=== PATIENT | male | born 1940 | race Caucasian/White ===

== ENCOUNTER 2018-07-30 09:56 | Observation (INO) ==
--- NOTE | 2018-07-30 11:11 | ED ---
HPI General Chief complaint: Respiratory Symptoms Stated complaint: SOB Time Seen by Provider: 07/30/18 10:51 History of Present Illness HPI narrative: 78-year-old male with history of prostate cancer currently undergoing chemotherapy and followed by oncologist Dr. Enciso, here for evaluation of cough, shortness of breath, nasal congestion, generalized weakness. Symptoms have been going on for about a week. He finished a course of Levaquin and prednisone prescribed to him by his primary care physician 3 days ago. He states that yesterday he had diarrhea with multiple loose/foul- smelling bowel movements throughout the day. He denies fevers or chills. No chest pain. Dyspnea is at rest, worse with exertion. No abdominal pain. Cough is productive of yellowish sputum, however when he blows his nose he does notice some streaks of blood. Related Data Home Medications Medication Instructions Recorded Confirmed aspirin [Ecotrin] 325 mg PO DAILY 07/13/18 07/30/18 atorvastatin [Lipitor] 80 mg PO DAILY 07/13/18 07/30/18 montelukast [Singulair] 10 mg PO QPM 07/13/18 07/30/18 Allergies Allergy/AdvReac Type Severity Reaction Status Date / Time No Known Allergies Allergy Verified 07/30/18 10:13 Review of Systems ROS: all other systems reviewed are negative [facility] Medical History Medical History Bony metastasis (Acute) COPD (chronic obstructive pulmonary disease) (Acute) High cholesterol (Acute) Prostate cancer (Acute) Surgical History Surgical History History of CEA (carotid endarterectomy) (Acute) History of penile implant (Acute) History of prostate surgery (Acute) Family History Family History Other CAD (coronary artery disease) Social History Social History Substance History: No History of Abuse Second Hand Smoke Exposure: No Smoking Status: Former smoker How Often Do You Have a Drink Containing Alcohol: 2 to 4 times a month Recent Travel in [facility] within the Last 8 Weeks: No Recent Out of Country Travel within the Last 8 Weeks: No Immunization History Tetanus Immunization: Unsure Exam Narrative Exam Narrative: GENERAL: Well-developed, well-nourished, comfortable, no apparent distress. SKIN: Focused skin assessment warm/dry. Diffuse pallor. HEAD: Atraumatic. Normocephalic. EYES: Pupils equal and round. No scleral icterus. No injection or drainage. Conjunctival pallor. ENT: No nasal bleeding or discharge. Mucous membranes pink and moist. Patchy white areas on tongue and posterior pharynx consistent with Kelsea. NECK: Trachea midline. No JVD. CARDIOVASCULAR: Regular rate and rhythm. RESPIRATORY: No accessory muscle use. Clear to auscultation. Breath sounds equal bilaterally. GASTROINTESTINAL: Abdomen soft, non-tender, nondistended. MUSCULOSKELETAL: No obvious deformities. No clubbing. No cyanosis. No edema. NEUROLOGICAL: Awake and alert. No obvious cranial nerve deficits. Motor grossly within normal limits. Normal speech. PSYCHIATRIC: Appropriate mood and affect; insight and judgment normal. Course Initial Documented Vital Signs Temperature 97.3 F L 07/30/18 10:00 Pulse Rate 84 07/30/18 10:00 Respiratory Rate 19 07/30/18 10:00 Blood Pressure 135/59 L 07/30/18 10:00 Pulse Oximetry 93 L 07/30/18 10:00 Last Documented Vital Signs Temperature 97.3 F L 07/30/18 10:00 Pulse Rate 97 H 07/30/18 14:47 Respiratory Rate 20 07/30/18 14:47 Blood Pressure 139/63 07/30/18 14:47 Pulse Oximetry 95 07/30/18 15:05 Medical Decision Making MDM Narrative Medical decision making narrative: BNP is 150. ,Vital signs reviewed. CBC is remarkable for WBC 2.6, hemoglobin 8.8 which is lower than his baseline, 10.5% monocytes. CMP is remarkable for potassium 3.2, calcium 7.5. Both of these were replaced. CHEST X-RAY: Mild venous congestion. CT pulmonary angiogram: CONCLUSION:1. No pulmonary emboli.2. Progression in the patient's emphysematous changes as well as chronic interstitial change when compared to the prior study.3. Pronounced coronary artery atherosclerotic calcifications.4. New lymph node involving the right cardiophrenic angle without bulky adenopathy elsewhere. Short-term follow-up CT is suggested to document stability of this nodule. This can be performed without IV contrast.5. Cholelithiasis.6. Sclerotic metastases presumably relating to a prostate primary. There is a pathologic fracture involving the right eighth rib CT soft tissue neck: CONCLUSION:1. Sclerotic lesion involving the left first rib. Please see the CTA of the chest reported separately.2. No mass or adenopathy involving the neck.3. Carotid artery atherosclerotic calcifications. Patient stool is heme-negative and brown. This is a 78-year-old male with history of with metastases to bones who presents for evaluation of shortness of breath, generalized weakness, nasal congestion, diarrhea. Patient's diarrhea started yesterday. He recently finished a course of Levaquin prescribed by his primary care physician 2 days prior to the diarrhea. He states he took [id number] antidiarrheals and no longer has this diarrhea. He does have profound generalized weakness which is worse since yesterday as well as dyspnea at rest and on exertion. He also has diffuse pallor with a hemoglobin of 8.8 which is lower than his baseline. Patient is overall not well-appearing, and because of his weakness he may be difficult time taking care of himself at home. He will be admitted for further treatment and evaluation. Case discussed with hospitalist Dr. Gifford who will admit the patient to his service for overnight observation. Medical Screen Exam Complete: Yes Emergency Medical Condition: Yes Differential Diagnosis Differential Diagnosis: Pneumonia, bronchitis, PE, pneumothorax, pulmonary edema , influenza, C. difficile colitis, anemia, Kelsea esophagitis Lab Data Result diagrams: 07/30/18 13:45 07/30/18 11:15 Lab Results 07/30/18 07/30/18 07/30/18 Range/Units 11:15 11:15 13:45 WBC 2.6 L (4.0-11.0) th/mm3 RBC 2.74 L (4.50-5.90) mil/mm3 Hgb 8.8 L (13.0-17.0) gm/dL Hct 25.2 L (39.0-51.0) % MCV 91.8 (80.0-100.0) fL MCH 32.2 (27.0-34.0) pg MCHC 35.1 (32.0-36.0) % RDW 16.0 (11.6-17.2) % Plt Count 222 (150-450) th/mm3 MPV 6.8 L (7.0-11.0) fL Prelim Diff (Auto) Slide review pending Neut % (Auto) 55.5 (16.0-70.0) % Lymph % (Auto) 30.3 (9.0-44.0) % [place] % (Auto) 10.5 H (0.0-8.0) % Eos % (Auto) 2.0 (0.0-4.0) % Baso % (Auto) 1.7 (0.0-2.0) % Neut # (Auto) 1.4 L (1.8-7.7) th/mm3 Lymph # (Auto) 0.8 L (1.0-4.8) th/mm3 [place] # (Auto) 0.3 (0.0-0.9) th/mm3 Eos # (Auto) 0.1 (0.0-0.4) th/mm3 Baso # (Auto) 0.0 (0.0-0.2) th/mm3 WBC Differential Manual diff final Seg Neuts % (Manual) 64 (16-70) % Band Neuts % (Manual) 15 H (0-6) % Lymphocytes % (Manual) 12 (9-44) % Monocytes % (Manual) 1 (0-8) % Eosinophils % (Manual) 2 (0-4) % Basophils % (Manual) 1 (0-2) % Metamyelocytes % (Man) 5 H (0-1) % Abs Neuts (Manual) 2.2 (1.8-7.7) th/mm3 Differential Comment . Platelet Estimate Normal (Normal) Platelet Morphology Normal (Normal) Ovalocytes 1+ H (None) Acanthocytes (Spur) Occ H (None) Sodium 144 (136-145) meq/L Potassium 3.2 L (3.5-5.1) meq/L Chloride 111 H (98-107) meq/L Carbon Dioxide 24.4 (21.0-32.0) meq/L Anion Gap 9 (5-15) meq/L BUN 12 (7-18) mg/dL Creatinine 0.92 (0.60-1.30) mg/dL Estimated GFR 80 L (>89) mL/min Random Glucose 111 H (74-106) mg/dL Calcium 7.5 L (8.5-10.1) mg/dL Total Bilirubin 0.6 (0.2-1.0) mg/dL AST 25 (15-37) U/L ALT 17 (12-78) U/L Alkaline Phosphatase 64 (45-117) U/L Total Creatine Kinase 48 (39-308) U/L Troponin I 0.03 (0.02-0.05) ng/mL B-Natriuretic Peptide 150 H (0-100) pg/mL Total Protein 6.0 L (6.4-8.2) g/dL Albumin 2.3 L (3.4-5.0) g/dL 07/30/18 Range/Units 15:30 WBC (4.0-11.0) th/mm3 RBC (4.50-5.90) mil/mm3 Hgb (13.0-17.0) gm/dL Hct (39.0-51.0) % MCV (80.0-100.0) fL MCH (27.0-34.0) pg MCHC (32.0-36.0) % RDW (11.6-17.2) % Plt Count (150-450) th/mm3 MPV (7.0-11.0) fL Prelim Diff (Auto) Neut % (Auto) (16.0-70.0) % Lymph % (Auto) (9.0-44.0) % [place] % (Auto) (0.0-8.0) % Eos % (Auto) (0.0-4.0) % Baso % (Auto) (0.0-2.0) % Neut # (Auto) (1.8-7.7) th/mm3 Lymph # (Auto) (1.0-4.8) th/mm3 [place] # (Auto) (0.0-0.9) th/mm3 Eos # (Auto) (0.0-0.4) th/mm3 Baso # (Auto) (0.0-0.2) th/mm3 WBC Differential Seg Neuts % (Manual) (16-70) % Band Neuts % (Manual) (0-6) % Lymphocytes % (Manual) (9-44) % Monocytes % (Manual) (0-8) % Eosinophils % (Manual) (0-4) % Basophils % (Manual) (0-2) % Metamyelocytes % (Man) (0-1) % Abs Neuts (Manual) (1.8-7.7) th/mm3 Differential Comment Platelet Estimate (Normal) Platelet Morphology (Normal) Ovalocytes (None) Acanthocytes (Spur) (None) Sodium (136-145) meq/L Potassium (3.5-5.1) meq/L Chloride (98-107) meq/L Carbon Dioxide (21.0-32.0) meq/L Anion Gap (5-15) meq/L BUN (7-18) mg/dL Creatinine (0.60-1.30) mg/dL Estimated GFR (>89) mL/min Random Glucose (74-106) mg/dL Calcium (8.5-10.1) mg/dL Total Bilirubin (0.2-1.0) mg/dL AST (15-37) U/L ALT (12-78) U/L Alkaline Phosphatase (45-117) U/L Total Creatine Kinase (39-308) U/L Troponin I 0.03 (0.02-0.05) ng/mL B-Natriuretic Peptide (0-100) pg/mL Total Protein (6.4-8.2) g/dL Albumin (3.4-5.0) g/dL Imaging Data Radiologist's impression: Chest X-Ray 07/30/18 11:00 CONCLUSION: Interstitial vascular prominence with moderate cardiomegaly. Early congestion suspected. Chest CTA 07/30/18 12:48 CONCLUSION: 1. No pulmonary emboli. 2. Progression in the patient's emphysematous changes as well as chronic interstitial change when compared to the prior study. 3. Pronounced coronary artery atherosclerotic calcifications. 4. New lymph node involving the right cardiophrenic angle without bulky adenopathy elsewhere. Short-term follow-up CT is suggested to document stability of this nodule. This can be performed without IV contrast. 5. Cholelithiasis. 6. Sclerotic metastases presumably relating to a prostate primary. There is a pathologic fracture involving the right eighth rib. Soft Tissue Neck CT 07/30/18 12:54 CONCLUSION: 1. Sclerotic lesion involving the left first rib. Please see the CTA of the chest reported separately. 2. No mass or adenopathy involving the neck. 3. Carotid artery atherosclerotic calcifications. Discharge Plan Discharge Disposition Patient Disposition: 30 Still Patient Discharge Condition Condition: Stable Discharge Details Diagnosis: Generalized weakness, Dyspnea, Anemia, Hypokalemia, Hypocalcemia, Metastatic disease Physicians Team ED Provider: Alberto Kaur Primary Care Provider: Omari Tuttle Attending Provider: Andre Jones Other Providers: Sadi Adames ED Status: Admitted Observation Patient
[2018-07-30 11:56] LABS: Alanine Aminotransferase 17 U/L (12-78); Albumin 2.3 g/dL (3.4-5.0); Anion Gap 9 meq/L (5-15); Aspartate Aminotransferase 25 U/L (15-37); Blood Urea Nitrogen 12 mg/dL (7-18); Calcium 7.5 mg/dL (8.5-10.1); Carbon Dioxide 24.4 meq/L (21.0-32.0); Chloride 111 meq/L (98-107); Glomerular Filtration Rate 80 mL/min (>89); Glucose,Random 111 mg/dL (74-106); Potassium 3.2 meq/L (3.5-5.1); Sodium 144 meq/L (136-145)
--- NOTE | 2018-07-30 11:58 | XR ---
EXAM DATE: 07/30/2018 11:53 AM EST AGE/SEX: 78 years / Male INDICATIONS: Patient is experiencing shortness of breath. CLINICAL DATA: This is the patient's initial encounter. Patient reports that signs and symptoms have been present for 2 weeks and indicates a pain score of 7/10. MEDICAL/SURGICAL HISTORY: . Bursitis, Diverticulitis, High Cholesterol, Prostate Cancer, Right Carotid Stenosis, Sinusitis, Upper GI bleed . Bilateral Cataracts, Spincter for Urinary Incontinence, Tonsillectomy, Right Carotid Endarterectomy, Penile Implant, Radical Prostatectomy . COMPARISON: [facility], XR RIBS, RIGHT, 04/11/2017. . FINDINGS: Mild interstitial vascular prominence has developed throughout both lungs especially on the left. Heart is moderately enlarged. [id number]-m-[id number] catheter is noted in place. Osseous structures are grossly intact. CONCLUSION: Interstitial vascular prominence with moderate cardiomegaly. Early congestion suspected. Electronically signed by: Frank Figueroa MD 07/30/2018 11:57 AM EST
[2018-07-30 11:59] LABS: Alkaline Phosphatase 64 U/L (45-117); Troponin I 0.03 ng/mL (0.02-0.05)
[2018-07-30 12:03] LABS: Creatine Kinase 48 U/L (39-308)
[2018-07-30] MEDS ORDERED: Nystatin Liq 500,000 UNIT/5 ML UDC SWISH-SWAL ONE (12:54)
--- NOTE | 2018-07-30 13:35 | CT ---
EXAM DATE: 07/30/2018 1:20 PM EST AGE/SEX: 78 years / Male INDICATIONS: Shortness of breath for one week. Currently on antibiotics for bronchitis. CLINICAL DATA: This is the patient's initial encounter. Patient reports that signs and symptoms have been present for 1 week and indicates a pain score of 3/10. MEDICAL/SURGICAL HISTORY: Carcinoma, prostatic. Carotid endarterectomy. RADIATION DOSE: 10.34 CTDI (mGy) COMPARISON: [facility], CT CHEST W/O CONTRAST, 06/10/2015. . TECHNIQUE: Volumetric scanning was performed using a multi-row detector CT scanner during bolus infu oscar of 50 ml Omnipaque 350 (iohexol) nonionic water-soluble contrast as a single exam dose. The shashank a was post processed with a variety of visualization algorithms including full volume maximum intensi ty projection and sliding thin slab reformation. Using automated exposure control and adjustment of t he mA and/or kV according to patient size, radiation dose was kept as low as reasonably achievable to obtain optimal diagnostic quality images. DICOM format image data is available electronically for r eview and comparison. FINDINGS: Pulmonary Arteries: No filling defects are seen in the pulmonary arteries out to the subsegmental ve ssels. The left and right pulmonary arteries are normal in diameter. Lung: Bullous emphysematous changes and chronic interstitial changes are noted bilaterally. Both rasmussen ve progressed from the prior study. No mass or bronchiectasis. No acute infiltrate.. Effusion: None. Mediastinum: There is a nodule within the right cardiophrenic angle measuring 14 mm. This is new fro m the prior CT. Other tiny scattered mediastinal lymph nodes are stable. No bulky adenopathy observed . The heart is at the upper limits of normal in terms of size without pericardial effusion. Pronounce d coronary artery and aortic atherosclerotic calcifications noted. The left vertebral artery arises d irectly off the aortic arch.. Other: The axilla is unremarkable. Small calcified gallstones layering within an otherwise normal-ap pearing gallbladder. 3.3 cm septated cyst involving the right lobe of the liver is unchanged. Sclerot ic change involving the lateral right eighth rib with associated nondisplaced fracture. There is some expansion of the bone with mixed lucency also noted within this same region. A focus of sclerosis se en involving the left posterior lateral 10th rib. This is a new finding. Tiny scattered foci of scler osis throughout the thoracic vertebral bodies are new.. CONCLUSION: 1. No pulmonary emboli. 2. Progression in the patient's emphysematous changes as well as chronic interstitial change when co mpared to the prior study. 3. Pronounced coronary artery atherosclerotic calcifications. 4. New lymph node involving the right cardiophrenic angle without bulky adenopathy elsewhere. Short- term follow-up CT is suggested to document stability of this nodule. This can be performed without IV contrast. 5. Cholelithiasis. 6. Sclerotic metastases presumably relating to a prostate primary. There is a pathologic fracture in volving the right eighth rib. Electronically signed by: Melecio Brizuela MD 07/30/2018 1:33 PM EST
[2018-07-30 13:52] LABS: Hematocrit 25.2 % (39.0-51.0); Hemoglobin 8.8 gm/dL (13.0-17.0); Mean Corpuscular HGB Conc 35.1 % (32.0-36.0); Mean Corpuscular Hemoglobin 32.2 pg (27.0-34.0); Mean Corpuscular Volume 91.8 fL (80.0-100.0); Mean Platelet Volume 6.8 fL (7.0-11.0); Platelet Count 222 th/mm3 (150-450); Red Blood Count 2.74 mil/mm3 (4.50-5.90); White Blood Count 2.6 th/mm3 (4.0-11.0)
[2018-07-30 13:53] LABS: Baso % (Auto) 1.7 % (0.0-2.0); Eos # (Auto) 0.1 th/mm3 (0.0-0.4); Lymph # (Auto) 0.8 th/mm3 (1.0-4.8); Lymph % (Auto) 30.3 % (9.0-44.0); Mono # (Auto) 0.3 th/mm3 (0.0-0.9); Mono % (Auto) 10.5 % (0.0-8.0); Neut # (Auto) 1.4 th/mm3 (1.8-7.7); Neut % (Auto) 55.5 % (16.0-70.0)
--- NOTE | 2018-07-30 14:07 | CT ---
EXAM DATE: 07/30/2018 1:31 PM EST AGE/SEX: 78 years / Male INDICATIONS: Shortness of breath. Evaluate for cancer. CLINICAL DATA: This is the patient's initial encounter. Patient reports that signs and symptoms have been present for 1 week and indicates a pain score of 3/10. MEDICAL/SURGICAL HISTORY: Carcinoma, prostatic. Carotid endarterectomy. RADIATION DOSE: 18.27 CTDI (mGy) COMPARISON: [facility], CTA CAROTID ARTERIES, 03/31/2015. . TECHNIQUE: Helical acquisition was performed using a multirow detector CT scanner during the adminis tration of 50 ml Omnipaque 350 (iohexol) nonionic water-soluble contrast as a single exam dose. Usi ng automated exposure control and adjustment of the mA and/or kV according to patient size, radiation dose was kept as low as reasonably achievable to obtain optimal diagnostic quality images. DICOM fo rmat image data is available electronically for review and comparison. FINDINGS: Nasopharynx: The nasopharyngeal airway has a normal configuration. No mucosal thickening or mass is seen. Oropharynx: The intrinsic muscles of the tongue are symmetric. The tonsillar pillars are intact. T he prevertebral soft tissues are not thickened. Larynx: The supraglottic, glottic, and infraglottic structures are intact. Parapharyngeal: The parapharyngeal space is intact. Salivary Glands: The parotid and submandibular glands are intact. Lymph Nodes: No enlarged or necrotic-appearing nodes. Thyroid: Homogeneous enhancement without evidence of nodule. Bones: Sclerotic lesion involving the left first rib posteriorly. Some degenerative changes involvin g the cervical spine. Right-sided Port-A-Cath. Calcified plaque involving the carotid arteries bilaterally.. See the CTA of the chest reported separately. CONCLUSION: 1. Sclerotic lesion involving the left first rib. Please see the CTA of the chest reported separatel y. 2. No mass or adenopathy involving the neck. 3. Carotid artery atherosclerotic calcifications. Electronically signed by: Melecio Brizuela MD 07/30/2018 2:06 PM EST
[2018-07-30] MEDS ORDERED: Calcium Gluconate Inj 1 GM in Dextrose 5% in Water Inj 100 ML IV.SIG ONE ×2 (14:11)
[2018-07-30 14:27] LABS: Eosinophils 2 % (0-4); Lymphocytes 12 % (9-44); Metamyelocytes 5 % (0-1); Monocytes 1 % (0-8); Ovalocytes 1+
[2018-07-30 14:28] LABS: Acanthocytes Occ
[2018-07-30 14:29] LABS: Platelet Estimate Normal (Normal); Platelet Morphology Normal (Normal)
[2018-07-30] MEDS ORDERED: Acetaminophen 325 MG Tablet PO PRN (14:59)
[2018-07-30] MEDS ORDERED: Sod Chloride 0.9% Inj 1,000 ML IV.CONT SCH (15:00)
[2018-07-30] MEDS ORDERED: Sodium Chloride 0.9% 2 ML Flush PRN IV.FLUSH (15:18)
[2018-07-30] MEDS: Enoxaparin Inj 40 MG/0.4 ML Syringe SQ SCH (15:28)
[2018-07-30] MEDS ORDERED: Sodium Chloride 0.65% Nasal Spray 45 ML Bottle EACH NARE PRN (16:37)
--- NOTE | 2018-07-30 16:41 | P.HPIM ---
History of Present Illness Primary Care Physician: Omari Tuttle DO Chief Complaint: Weakness History of Present Illness: The patient is a 78-year-old male with a past medical history of metastatic prostate cancer who is presenting to the hospital with worsening weakness and shortness of breath. The patient says that about 4 months ago he went to an outside hospital where he was worked up for weakness. He said he had all kinds of tests and imaging done and no reason for his weakness was found. He says that about 1 month ago he developed increasing shortness of breath. He waited for it to get better but about 11 days ago he went to his primary care doctor who ordered a chest x-ray and stated that the patient had bronchitis. He was started on Levaquin and prednisone which he continues at this time. He feels like the medications have helped a little bit. He states that he is still very weak and does not feel 100%. He says that he could barely walk. He feels tired all the time. He says sometimes he sleeps at 4 PM and wakes up at 8 AM the next day. He says he was recently started on chemotherapy a week from Monday. He says he gets chemotherapy 1 day a month for 6 months. He denies any fevers. He does endorse nasal congestion. He has been having a lot of mouth breathing. He says that he has had a bad taste in his mouth. He has not been eating that much. He says that he is scheduled to go on a cruise in the beginning of August. Review of Systems All other systems reviewed negative except as stated in HPI PMFSH - History History Provided By: Patient - Medical History Medical History: Medical History (Last Updated 07/30/18 @ 16:47 by Andre Jones DO) Bony metastasis COPD (chronic obstructive pulmonary disease) High cholesterol Prostate cancer - Surgical History Surgical History: Surgical History (Last Updated 07/30/18 @ 16:40 by Andre Jones DO) History of CEA (carotid endarterectomy) History of penile implant History of prostate surgery - Family History Family History: Family History (Last Updated 07/30/18 @ 16:40 by Andre Jones DO) Other CAD (coronary artery disease) - Social History I have reviewed the patient's Social History: Yes - Tobacco History Second Hand Smoke Exposure: No Smoking Status: Former smoker - Alcohol History How Often Do You Have a Drink Containing Alcohol: 2 to 4 times a month - Substance Use History Substance History: No History of Abuse - Travel History Recent Travel in the [place] Within the Last 8 Weeks: No Recent Travel Out of the Country Within the Last 8 Weeks: No - Immunization History Tetanus Immunization: Unsure Medications and Allergies Active Medications: Active Medications Acetaminophen (Tylenol) 650 mg PO Q4H PRN PRN Reason: Temp > 100.4 Albuterol (Duoneb Neb (Patricia)) 1 ampul NEB Q6HR WHILE AWAKE NEB PATRICIA Albuterol (Duoneb Neb (Prn)) 1 ampul NEB Q2HR NEB PRN PRN Reason: DYSPNEA Aspirin (Ecotrin) 325 mg PO DAILY [facility] Atorvastatin Calcium (Lipitor) 80 mg PO DAILY [facility] Enoxaparin Sodium (Lovenox Inj) 40 mg SQ Q24H [facility] Last Admin: 07/30/18 15:28 Dose: 40 mg Sodium Chloride (Ns Inj) 1,000 mls @ 100 mls/hr IV.CONT .Q10H [facility] Stop: 07/31/18 00:59 Last Admin: 07/30/18 16:00 Dose: 100 mls/hr Montelukast Sodium (Singulair) 10 mg PO QPM [facility] Ondansetron HCl (Zofran Inj) 4 mg IV.PUSH Q6H PRN PRN Reason: NAUSEA OR VOMITING Prednisone (Deltasone) 10 mg PO DAILY [facility] Sodium Chloride (Ns Flush) 2 ml IV.FLUSH BID [facility] Sodium Chloride (Ns Flush) 2 ml IV.FLUSH PRN PRN PRN Reason: FLUSH AFTER USING IV ACCESS Sodium Chloride ([place] Nasal [place]) 2 spray EACH NARE Q4H PRN PRN Reason: congestion Allergies Allergy/AdvReac Type Severity Reaction Status Date / Time No Known Allergies Allergy Verified 07/30/18 10:13 Home Medications Medication Instructions Recorded Confirmed Type aspirin [Ecotrin] 325 mg PO DAILY 07/13/18 07/30/18 History atorvastatin [Lipitor] 80 mg PO DAILY 07/13/18 07/30/18 History montelukast [Singulair] 10 mg PO QPM 07/13/18 07/30/18 History Exam Vital signs: Vital Signs 07/30/18 10:00 07/30/18 10:03 07/30/18 10:17 Temperature 97.3 F L Pulse Rate 84 90 Respiratory Rate 19 26 H Blood Pressure 135/59 L 166/72 H Pulse Oximetry 93 L 93 L 99 07/30/18 11:15 07/30/18 13:52 07/30/18 14:47 Temperature Pulse Rate 86 82 97 H Respiratory Rate 20 18 20 Blood Pressure 139/63 Pulse Oximetry 96 95 07/30/18 15:05 Temperature Pulse Rate Respiratory Rate Blood Pressure Pulse Oximetry 95 Intake & Output 07/29/18 07/30/18 07/30/18 18:59 06:59 18:59 Weight 90.718 kg Narrative: GENERAL: Well-developed, well-nourished, no apparent distress. SKIN: Focused skin assessment warm/dry. Diffuse pallor. HEAD: Atraumatic. Normocephalic. EYES: Pupils equal and round. No scleral icterus. No injection or drainage. Conjunctival pallor. ENT: No nasal bleeding or discharge. Mucous membranes pink and moist. NECK: Trachea midline. No JVD. CARDIOVASCULAR: Regular rate and rhythm. RESPIRATORY: No accessory muscle use. Wheezing appreciated. GASTROINTESTINAL: Abdomen soft, non-tender, nondistended. MUSCULOSKELETAL: No obvious deformities. No clubbing. No cyanosis. TR edema. NEUROLOGICAL: Awake and alert. No obvious cranial nerve deficits. Motor grossly within normal limits. Normal speech. PSYCHIATRIC: Appropriate mood and affect; insight and judgment normal. Results - Labs CBC & Chem 7: 07/30/18 13:45 07/30/18 11:15 Labs: Short CBC 07/30/18 Range/Units 13:45 WBC 2.6 L (4.0-11.0) th/mm3 Hgb 8.8 L (13.0-17.0) gm/dL Hct 25.2 L (39.0-51.0) % Plt Count 222 (150-450) th/mm3 BMP 07/30/18 11:15 Sodium 144 Potassium 3.2 L Chloride 111 H Carbon Dioxide 24.4 BUN 12 Creatinine 0.92 Calcium 7.5 L Cardiac Enzymes 07/30/18 07/30/18 Range/Units 11:15 15:30 Total Creatine Kinase 48 (39-308) U/L Troponin I 0.03 0.03 (0.02-0.05) ng/mL Liver Function 07/30/18 Range/Units 11:15 Total Bilirubin 0.6 (0.2-1.0) mg/dL AST 25 (15-37) U/L ALT 17 (12-78) U/L Alkaline Phosphatase 64 (45-117) U/L Albumin 2.3 L (3.4-5.0) g/dL - Imaging Impressions Chest X-Ray 07/30/18 11:00 CONCLUSION: Interstitial vascular prominence with moderate cardiomegaly. Early congestion suspected. Chest CTA 07/30/18 12:48 CONCLUSION: 1. No pulmonary emboli. 2. Progression in the patient's emphysematous changes as well as chronic interstitial change when compared to the prior study. 3. Pronounced coronary artery atherosclerotic calcifications. 4. New lymph node involving the right cardiophrenic angle without bulky adenopathy elsewhere. Short-term follow-up CT is suggested to document stability of this nodule. This can be performed without IV contrast. 5. Cholelithiasis. 6. Sclerotic metastases presumably relating to a prostate primary. There is a pathologic fracture involving the right eighth rib. Soft Tissue Neck CT 07/30/18 12:54 CONCLUSION: 1. Sclerotic lesion involving the left first rib. Please see the CTA of the chest reported separately. 2. No mass or adenopathy involving the neck. 3. Carotid artery atherosclerotic calcifications. Caprini VTE Risk Assessment Caprini VTE Risk Assessment: Moderate/High Risk (score >= 2) Caprini Risk Assessment Model: Point Value = 1 Point Value = 2 Point Value = 3 Point Value = 5 Age 41-60 Minor surgery BMI > 25 kg/m2 Swollen legs Varicose veins or History of unexplained or recurrent spontaneous Oral contraceptives or hormone replacement Sepsis (< 1 month) Serious lung disease, including pneumonia (< 1 month) Abnormal pulmonary function Acute myocardial infarction Congestive heart failure (< 1 month) History of inflammatory bowel disease Medical patient at bed rest Age 61-74 Arthroscopic surgery Major open surgery (> 45 min) Laparoscopic surgery (> 45 min) Malignancy Confined to bed (> 72 hours) Immobilizing plaster cast Central venous access Age >= 75 History of VTE Family history of VTE Factor V Leiden Prothrombin [id number] Lupus anticoagulant Anticardiolipin antibodies Elevated serum homocysteine Heparin-induced thrombocytopenia Other congenital or acquired thrombophilia Stroke (< 1 month) Elective arthroplasty Hip, pelvis, or leg fracture Acute spinal cord injury (< 1 month) Prophylaxis Regimen: Total Risk Factor Score Risk Level Prophylaxis Regimen 0-1 Low Early ambulation 2 Moderate Order ONE of the following: *Sequential Compression Device (SCD) *Heparin 5000 units SQ BID 3-4 Higher Order ONE of the following medications: *Heparin 5000 units SQ TID *Enoxaparin/Lovenox 40 mg SQ daily (WT < 150 kg, CrCl > 30 mL/min) *Enoxaparin/Lovenox 30 mg SQ daily (WT < 150 kg, CrCl > 10-29 mL/min) *Enoxaparin/Lovenox 30 mg SQ BID (WT < 150 kg, CrCl > 30 mL/min) AND/OR *Sequential Compression Device (SCD) 5 or more Highest Order ONE of the following medications: *Heparin 5000 units SQ TID (Preferred with Epidurals) *Enoxaparin/Lovenox 40 mg SQ daily (WT < 150 kg, CrCl > 30 mL/min) *Enoxaparin/Lovenox 30 mg SQ daily (WT < 150 kg, CrCl > 10-29 mL/min) *Enoxaparin/Lovenox 30 mg SQ BID (WT < 150 kg, CrCl > 30 mL/min) AND *Sequential Compression Device (SCD) Assessment and Plan - Plan Generalized weakness/Prostate cancer/Anemia Multifactorial. He has metastatic prostate cancer and was recently started on chemotherapy. He has not been eating well. He is anemic. Hemoccult negative in the ED. -oncology consult requested. -PT evaluation. -dietary consult. -IVFs. -consider palliative care consult. -follow CBC and transfuse as needed. Bronchitis The pt has been on Levaquin and prednisone for [address] chest showed: No pulmonary emboli; Progression in the patient's emphysematous changes as well as chronic interstitial change when compared to the prior study; New lymph node involving the right cardiophrenic angle without bulky adenopathy elsewhere; Short-term follow-up CT is suggested to document stability of this nodule. -continue prednisone 10 mg daily. -hold off on further antibiotics. -standing and as needed Duonebs. -incentive spirometry. -nasal spray for congestion. -oxygen as needed. Hypokalemia S/t decreased PO intake. S/p repletion in the ED. -follow BMP and replete as needed. PPx: Lovenox Code Status: DNR Discussed Condition With: Dr. Kaur, pt
--- NOTE | 2018-07-30 17:05 | ECG ---
Date Performed: 07/30/2018 Time Performed: 10:15:00 PTAGE: 78 years EKG: Sinus rhythm WITH OCCASIONAL VENTRICULAR PREMATURE COMPLEXES WITH OCCASIONAL SUPRAVENTRICULAR PREMATURE COMPLEXES BORDERLINE ECG PREVIOUS TRACING : 03/21/1996 16.19 Since the previous tracing, no significant change noted DOCTOR: Amelia العراقي Interpretating Date/Time 07/30/2018 17:03:46
[2018-07-30] MEDS: Montelukast 10 MG Tablet PO SCH (18:41)
[2018-07-30] MEDS: predniSONE 10 MG Tablet PO SCH (18:41)
[2018-07-30] MEDS: Sodium Chloride 0.9% 2 ML Flush BID IV.FLUSH SCH (21:45)
[2018-07-31 07:37] LABS: Baso % (Auto) 1.9 % (0.0-2.0); Eos % (Auto) 0.6 % (0.0-4.0); Hematocrit 23.8 % (39.0-51.0); Hemoglobin 8.4 gm/dL (13.0-17.0); Lymph # (Auto) 0.6 th/mm3 (1.0-4.8); Mean Corpuscular HGB Conc 35.5 % (32.0-36.0); Mean Corpuscular Hemoglobin 32.2 pg (27.0-34.0); Mean Corpuscular Volume 90.8 fL (80.0-100.0); Mean Platelet Volume 7.1 fL (7.0-11.0); Mono # (Auto) 0.2 th/mm3 (0.0-0.9); Mono % (Auto) 11.5 % (0.0-8.0); Platelet Count 226 th/mm3 (150-450); Red Blood Count 2.62 mil/mm3 (4.50-5.90); Red Cell Distribution Width 16.1 % (11.6-17.2); White Blood Count 1.9 th/mm3 (4.0-11.0)
[2018-07-31 08:06] LABS: Albumin 2.2 g/dL (3.4-5.0); Anion Gap 5 meq/L (5-15); Aspartate Aminotransferase 23 U/L (15-37); Blood Urea Nitrogen 11 mg/dL (7-18); Calcium 7.5 mg/dL (8.5-10.1); Carbon Dioxide 25.6 meq/L (21.0-32.0); Chloride 115 meq/L (98-107); Glomerular Filtration Rate Greater Than 89 mL/min (>89); Glucose,Random 134 mg/dL (74-106); Potassium 3.8 meq/L (3.5-5.1); Sodium 146 meq/L (136-145)
[2018-07-31 08:10] LABS: Alanine Aminotransferase 17 U/L (12-78); Alkaline Phosphatase 62 U/L (45-117); Total Protein 5.6 g/dL (6.4-8.2)
[2018-07-31 08:53] LABS: Eosinophils 1 % (0-4); Lymphocytes 25 % (9-44); Metamyelocytes 1 % (0-1); Monocytes 3 % (0-8); Tallied Nucleated RBC 1 (0-0)
[2018-07-31 08:55] LABS: Ovalocytes 1+; Platelet Estimate Normal (Normal); Platelet Morphology Normal (Normal)
[2018-07-31 08:56] LABS: Burr Cells 1+
[2018-07-31] MEDS: Sodium Chloride 0.9% 2 ML Flush BID IV.FLUSH SCH ×2 (10:09→20:11)
[2018-07-31] MEDS: predniSONE 10 MG Tablet PO SCH (10:09)
--- NOTE | 2018-07-31 13:33 | P.PN ---
Subjective Interval history: Follow-up history of metastases prostate cancer/generalized weakness/bronchitis July 31, 2018-patient seen and examined, still with some generalized weakness. Was working with PT this morning. Denies any significant shortness of breath. Physical Exam Vital signs: Vital Signs 07/30/18 13:52 07/30/18 14:47 07/30/18 15:05 Temperature Pulse Rate 82 97 H Respiratory Rate 18 20 Blood Pressure 139/63 Pulse Oximetry 96 95 95 07/30/18 18:00 07/30/18 18:17 07/30/18 19:46 Temperature 98.2 F 100 F H Pulse Rate 86 88 92 H Respiratory Rate 18 18 20 Blood Pressure 141/68 H 146/67 H 120/56 L Pulse Oximetry 95 93 L 94 L 07/30/18 20:00 07/30/18 23:23 07/31/18 00:06 Temperature 100 F H Pulse Rate 90 98 H 94 H Respiratory Rate 20 Blood Pressure 110/49 L Pulse Oximetry 94 L 07/31/18 04:02 07/31/18 04:33 07/31/18 07:34 Temperature 97.8 F Pulse Rate 77 84 84 Respiratory Rate 20 Blood Pressure 151/72 H Pulse Oximetry 93 L 90 L 07/31/18 08:00 07/31/18 12:00 07/31/18 13:04 Temperature 97.9 F 97.2 F L Pulse Rate 98 H 88 66 Respiratory Rate 16 16 18 Blood Pressure 110/58 L 131/68 Pulse Oximetry 92 L Intake & Output 07/30/18 07/31/18 07/31/18 18:59 06:59 18:59 Intake Total 100 / 100 1000 / 1000 Output Total 200 / 200 Balance 100 / 100 800 / 800 Weight 90.718 kg Intake: IV 100 / 100 1000 / 1000 NS Inj 1,000 ML @ 100 mls/hr IV 1000 / 1000 .CONT .Q10H TATI Rx#:[id number] Calcium Gluconate Inj 1 GM In 100 / 100 D5W Inj 100 ML @ 110 mls/hr IV. SIG ONCE ONE Rx#:[id number] Output: Urine 200 / 200 Other: # Urine Diapers 1 Narrative: GENERAL: Well-developed, well-nourished, no apparent distress. SKIN: Focused skin assessment warm/dry. Diffuse pallor. HEAD: Atraumatic. Normocephalic. EYES: Pupils equal and round. No scleral icterus. No injection or drainage. Conjunctival pallor. ENT: No nasal bleeding or discharge. Mucous membranes pink and moist. NECK: Trachea midline. No JVD. CARDIOVASCULAR: Regular rate and rhythm. RESPIRATORY: No accessory muscle use. Wheezing appreciated. GASTROINTESTINAL: Abdomen soft, non-tender, nondistended. MUSCULOSKELETAL: No obvious deformities. No clubbing. No cyanosis. TR edema. NEUROLOGICAL: Awake and alert. No obvious cranial nerve deficits. Motor grossly within normal limits. Normal speech. PSYCHIATRIC: Appropriate mood and affect; insight and judgment normal. Results - Labs CBC & Chem 7: 07/31/18 06:59 07/31/18 06:59 Laboratory Results - last 24 hr 07/30/18 07/30/18 07/30/18 13:45 15:30 21:00 WBC 2.6 L RBC 2.74 L Hgb 8.8 L Hct 25.2 L MCV 91.8 MCH 32.2 MCHC 35.1 RDW 16.0 Plt Count 222 MPV 6.8 L Prelim Diff (Auto) Slide review pending Neut % (Auto) 55.5 Lymph % (Auto) 30.3 Emanuel % (Auto) 10.5 H Eos % (Auto) 2.0 Baso % (Auto) 1.7 Neut # (Auto) 1.4 L Lymph # (Auto) 0.8 L Emanuel # (Auto) 0.3 Eos # (Auto) 0.1 Baso # (Auto) 0.0 WBC Differential Manual diff final Seg Neuts % (Manual) 64 Band Neuts % (Manual) 15 H Lymphocytes % (Manual) 12 Monocytes % (Manual) 1 Eosinophils % (Manual) 2 Basophils % (Manual) 1 Metamyelocytes % (Man) 5 H Abs Neuts (Manual) 2.2 Nucleated RBCs/100 WBC Differential Comment . Platelet Estimate Normal Platelet Morphology Normal Ovalocytes 1+ H Tyler Cells Acanthocytes (Spur) Occ H Sodium Potassium Chloride Carbon Dioxide Anion Gap BUN Creatinine Estimated GFR Random Glucose Calcium Total Bilirubin AST ALT Alkaline Phosphatase Troponin I 0.03 0.04 Total Protein Albumin Stl C.difficile DNA Amp St C. diff Tox Epid 027 07/30/18 07/31/18 07/31/18 23:00 06:59 06:59 WBC 1.9 L RBC 2.62 L Hgb 8.4 L Hct 23.8 L MCV 90.8 MCH 32.2 MCHC 35.5 RDW 16.1 Plt Count 226 MPV 7.1 Prelim Diff (Auto) Slide review pending Neut % (Auto) 56.0 Lymph % (Auto) 30.0 Emanuel % (Auto) 11.5 H Eos % (Auto) 0.6 Baso % (Auto) 1.9 Neut # (Auto) 1.0 L Lymph # (Auto) 0.6 L Emanuel # (Auto) 0.2 Eos # (Auto) 0.0 Baso # (Auto) 0.0 WBC Differential Manual diff final Seg Neuts % (Manual) 36 Band Neuts % (Manual) 32 H Lymphocytes % (Manual) 25 Monocytes % (Manual) 3 Eosinophils % (Manual) 1 Basophils % (Manual) 2 Metamyelocytes % (Man) 1 Abs Neuts (Manual) 1.3 L Nucleated RBCs/100 WBC 1 H Differential Comment . Platelet Estimate Normal Platelet Morphology Normal Ovalocytes 1+ H Edwards Cells 1+ H Acanthocytes (Spur) Sodium 146 H Potassium 3.8 Chloride 115 H Carbon Dioxide 25.6 Anion Gap 5 BUN 11 Creatinine 0.73 Estimated GFR Greater than 89 Random Glucose 134 H Calcium 7.5 L Total Bilirubin 0.4 AST 23 ALT 17 Alkaline Phosphatase 62 Troponin I Total Protein 5.6 L Albumin 2.2 L Stl C.difficile DNA Amp Negative St C. diff Tox Epid 027 Negative Microbiology 07/30/18 11:25 Blood - Peripheral Aerobic Blood Culture - Preliminary No growth in 1 day 07/30/18 11:25 Blood - Peripheral Anaerobic Blood Culture - Preliminary No growth in 1 day 07/30/18 11:15 Blood - Peripheral Aerobic Blood Culture - Preliminary No growth in 1 day 07/30/18 11:15 Blood - Peripheral Anaerobic Blood Culture - Preliminary No growth in 1 day 07/30/18 12:30 Nasal Wash Influenza Types A,B Antigen - Final Negative for FLU A and B antigen Infection due to influenza A or B cannot be ruled out since the antigen present in the sample may be below the detection limit of the test. - Imaging Impressions Chest CTA 07/30/18 12:48 CONCLUSION: 1. No pulmonary emboli. 2. Progression in the patient's emphysematous changes as well as chronic interstitial change when compared to the prior study. 3. Pronounced coronary artery atherosclerotic calcifications. 4. New lymph node involving the right cardiophrenic angle without bulky adenopathy elsewhere. Short-term follow-up CT is suggested to document stability of this nodule. This can be performed without IV contrast. 5. Cholelithiasis. 6. Sclerotic metastases presumably relating to a prostate primary. There is a pathologic fracture involving the right eighth rib. Soft Tissue Neck CT 07/30/18 12:54 CONCLUSION: 1. Sclerotic lesion involving the left first rib. Please see the CTA of the chest reported separately. 2. No mass or adenopathy involving the neck. 3. Carotid artery atherosclerotic calcifications. Assessment and Plan - Plan 78-year-old man Generalized weakness/Prostate cancer/Anemia Multifactorial. He has metastatic prostate cancer and was recently started on chemotherapy. -oncology consult pending. -PT evaluation. -consider palliative care consult. -follow CBC and transfuse as needed. Bronchitis The pt has been on Levaquin and prednisone for [address] chest showed: No pulmonary emboli; Progression in the patient's emphysematous changes as well as chronic interstitial change when compared to the prior study; New lymph node involving the right cardiophrenic angle without bulky adenopathy elsewhere; Short-term follow-up CT is suggested to document stability of this nodule. -continue prednisone 10 mg daily. -hold off on further antibiotics. -Continue as needed Duonebs. -incentive spirometry. -nasal spray for congestion. -Maintain oxygen saturation above 92%. Hypokalemia-resolved status post replacement PPx: Lovenox
--- NOTE | 2018-07-31 15:17 | P.DIET ---
Nutritional Evaluation Type of nutrition evaluation: initial Nutrition consult regarding: Diet Evaluation Nutrition screening: [facility] [place] Screening comments: 07/31 [facility] [place] for Malnutrition Subjective Subjective Comments: Pt stated his appetite was getting better, also mentioned he was eating around 70-100% for most meals this week. Objective - Diagnosis generalized weakness, dyspnea, electrolyte abnormal - Objective Body Mass Index: 28.7 % IBW: 120 (IBW = 166lb) Body Weight Used for Calculations: Actual (90.71kg) Energy Needs - Lower Range (kCal/kg): 22 Energy Needs - Upper Range (kCal/kg): 28 Lower Limit kCal/kg (kCals): 1,996 Upper Limit kCal/kg (kCals): 2,540 Lower Limit Protein Factor (Grams per Kg): 1.1 Upper Limit Protein Factor (Grams per Kg): 1.3 Lower Protein Needs (Protein): 100 Upper Protein Needs (Protein): 118 Dietitian Reviewed in Medical Record: Current diet, Curent medications, Intake & Output, Labs, Medical history Diet Order: regular adult Oral Diet Intake Amount: Good 75-90% Objective Comments: PMH: bony metastasis, COPD, high chol, prostate CA Labs: random glucose 134, Ca+ 7.5 pt mentioned his last A1c he took was 6.2% Assessment Assessment: Pt currently at nutritional risk r/t reported malnutrition. Pt reported a good appetite and good PO intake for this week, tolerating his food. Pt mentioned he has practiced a diet low in fat, salt, sugar and high in vegetables. Pt said he lost 32lb in 1 1/2 months unintentionally d/t changes in taste and loss of appetite. RD to recommend Ensure Enlive TID for pt as a PO supplement. CBW = 90.71kg. Will continue to monitor PO and supplement intake. Labs reviewed, dietitian following. Recommendations: 1. RD to recommend Ensure Enlive TID for pt as a PO supplement 2. Will continue to monitor PO and supplement intake 3. Dietitian following Dietitian to Monitor: Lab values, Supplement acceptance, Intake & Output, Diet tolerance, Weight change, PO Intake
[2018-07-31] MEDS: Enoxaparin Inj 40 MG/0.4 ML Syringe SQ SCH (16:51)
[2018-07-31] MEDS: Montelukast 10 MG Tablet PO SCH (17:01)
[2018-07-31] MEDS: MethylPREDNISolone Sod Succinate Inj 125 MG/2 ML Vial IV.PUSH SCH (22:41)
[2018-07-31] MEDS: LORazepam 1 MG Tablet PO PRN (22:41)
--- NOTE | 2018-07-31 23:33 | MB ---
cc: Chris Enciso MD DATE: 07/31/2018 REASON FOR CONSULTATION: 78-year-old male with metastatic prostate cancer, admitted to the hospital with shortness of breath, cough, and this evening found to be hypoxic. PATIENT PROFILE: The patient is a 78-year-old male well known to me. He is . He is retired. He had worked at the [employer]. He stopped smoking approximately 25 years ago and smoked a pack of cigarettes per day for 23 years. Alcohol intake is minimal. He has 4 children, 3 living, from a previous marriage. HISTORY OF PRESENT ILLNESS: The patient is a 78-year-old male who had a prostatectomy in 1995 for a pathologic T4N0M0 adenocarcinoma. He received postoperative radiation. He developed biochemical failure and eventually metastatic disease to bone and lymph nodes. He has received numerous treatments including Casodex, Provenge, Megace, ketoconazole, enzalutamide, abiraterone, and Lupron. He recently developed progressive disease with a rising PSA, and a CAT scan of the abdomen and pelvis showing progressive disease and left periaortic lymph node enlargement. He was treated with single agent Taxotere at a reduced dose of 50 mg/m2 on 07/20/2018. Prior to this, he was completing a course of Levaquin for sinus drainage. During the past week, he has had progressive shortness of breath and cough. For this reason, he presented to [place]. He had a CT angiogram done on 07/30/2013. There is no evidence of pulmonary emboli. The CT was read as having significant progressive emphysema. In looking at the left lung in particular, there is a very diffuse ground glass appearance and to a lesser extent in the right lung. There are changes of emphysema. I suspect that this ground glass appearance is an interstitial pneumonitis/inflammatory response to the Taxotere. He was planning on leaving against medical advice this evening. I spoke to him at length and had him walk up and down the shaikh. At rest, his O2 saturation was 92%; when he walked up and down the shaikh his O2 saturation dropped to 82%. PAST SURGICAL HISTORY: 1. Bilateral cataracts. 2. Sphincter repair for urinary incontinence. 3. Colonoscopy. 4. Right carotid endarterectomy in 2014. 5. Radical prostatectomy in 1995 for Anant grade 8 adenocarcinoma with positive surgical margin T4 N0, treated with radiation. PAST MEDICAL HISTORY: 1. Metastatic prostate cancer to bone and lymph nodes, having undergone multiple hormonal therapies, radiation therapy and a recent single agent Taxotere. 2. History of diverticulitis. 3. History of elevated cholesterol. 4. Anxiety. MEDICATIONS PRIOR TO ADMISSION: 1. Singulair. 2. Prednisone 5 mg a day. 3. Lipitor. 4. Aspirin. ALLERGIES: NO KNOWN ALLERGIES. FAMILY HISTORY: The patient's parents are . There is no meaningful family history in terms of his current illness. REVIEW OF SYSTEMS: Notable for deterioration in the past week with weakness, shortness of breath and cough. Vision is fine. Hearing is poor. He has mild bruising. He has shortness of breath with minimal activity. No chest pain. No abdominal or pelvic pain. No dysuria. Occasional lower back pain, which is mild. No skin problems. No neurologic problems. Psychiatric: Anxious and discouraged. PHYSICAL EXAMINATION: GENERAL: Reveals an anxious gentleman who 30 minutes ago was planning to leave against medical advice. He is much calmer now, as I am a familiar face. VITAL SIGNS: Blood pressure 130/50, respiratory rate is 20. Pulse at rest is 90; when he walked up and down the shaikh it went to 136 after about 2 minutes and his O2 saturation dropped to 82%. HEENT: Head is normocephalic. Sclerae and conjunctivae are normal. Oropharynx unremarkable. NECK: There is no cervical, supraclavicular, axillary or inguinal adenopathy. HEART: Regular rhythm. LUNGS: Lung sounds are mostly distant. Few rhonchi. ABDOMEN: Soft. No hepatosplenomegaly. EXTREMITIES: Trace edema. MUSCULOSKELETAL: No bone pain. NEUROLOGIC: No weakness. Cognition and affect unremarkable except for anxiety. ASSESSMENT: The patient is a 78-year-old male. He has progressive hormone refractory metastatic prostate cancer to bone and lymph nodes. He received single agent Taxotere at a reduced dose on 07/20/2018. Since this time, he has had a rapid worsening in his breathing. His CT scan of the thorax shows extensive ground glass infiltrates in the left lung and to a lesser extent the right lung. He is hypoxic when he walks 50 feet. All of this is new. I suspect that he has a pneumonitis secondary to the Taxotere. He does not appear to have the symptoms of pneumonia and although the initial report ascribes this to a worsening of emphysema, there has been little to suggest this over the past 6 months. RECOMMENDATIONS: 1. I spoke to his . He agrees to stay in the hospital. He is at risk of dying if he goes home with O2 saturations dropping into the low 80s. 2. Will treat with Solu-Medrol 60 IV every 12 hours. If he does not improve, I will ask pulmonary to see. 3. He is anxious. I have ordered Xanax 1 mg p.o. t.i.d. p.r.n. 4. Check CBC and platelet count tomorrow. I will also try to find outpatient CAT scans of the chest, from [place] which I am not able to tap into on our present computer system or simply do not know how to do this. I would like to see if these ground glass infiltrates were present months ago or whether they are in fact new suggesting an acute event. MD EZRA Grady/bird , 10:37 PM , 10:53 PM [email or web address]
[2018-08-01] MEDS: MethylPREDNISolone Sod Succinate Inj 125 MG/2 ML Vial IV.PUSH SCH ×2 (08:46→21:23)
[2018-08-01] MEDS: Sodium Chloride 0.9% 2 ML Flush BID IV.FLUSH SCH ×2 (08:47→21:32)
[2018-08-01 09:30] LABS: Baso % (Auto) 0.4 % (0.0-2.0); Eos % (Auto) 0.1 % (0.0-4.0); Hematocrit 27.4 % (39.0-51.0); Hemoglobin 9.3 gm/dL (13.0-17.0); Lymph # (Auto) 0.6 th/mm3 (1.0-4.8); Lymph % (Auto) 20.1 % (9.0-44.0); Mean Corpuscular HGB Conc 33.9 % (32.0-36.0); Mean Corpuscular Hemoglobin 31.8 pg (27.0-34.0); Mean Corpuscular Volume 93.9 fL (80.0-100.0); Mean Platelet Volume 7.2 fL (7.0-11.0); Mono # (Auto) 0.2 th/mm3 (0.0-0.9); Mono % (Auto) 6.8 % (0.0-8.0); Neut # (Auto) 2.2 th/mm3 (1.8-7.7); Neut % (Auto) 72.6 % (16.0-70.0); Platelet Count 285 th/mm3 (150-450); Red Blood Count 2.92 mil/mm3 (4.50-5.90); Red Cell Distribution Width 16.8 % (11.6-17.2)
--- NOTE | 2018-08-01 10:24 | P.PNONC ---
Subjective Interval history: Patient resting comfortably in bed, in no acute distress. His is at the bedside. Patient was seen alongside Dr. Enciso. Patient had drop in walking O2 sat last night. CT scan results discussed with the patient and his . Treatment plan discussed as well. Objective Vital Signs/Intake & Output: Vital Signs 07/31/18 12:00 07/31/18 13:04 07/31/18 16:44 Temperature 97.2 F L 97 F L Pulse Rate 88 66 87 Respiratory Rate 16 18 16 Blood Pressure 131/68 142/74 H Pulse Oximetry 94 L 07/31/18 19:00 07/31/18 19:52 07/31/18 20:01 Temperature 96.9 F L Pulse Rate 91 H 93 H 100 H Respiratory Rate 19 20 Blood Pressure 133/52 L Pulse Oximetry 92 L 98 08/01/18 00:00 08/01/18 00:06 08/01/18 03:00 Temperature 98 F Pulse Rate 91 H 102 H 82 Respiratory Rate 18 Blood Pressure 122/60 Pulse Oximetry 93 L 08/01/18 04:46 08/01/18 07:19 Temperature 97.8 F Pulse Rate 93 H 81 Respiratory Rate 18 16 Blood Pressure 147/78 H Pulse Oximetry 91 L 95 Intake & Output 07/31/18 08/01/18 08/01/18 18:59 06:59 18:59 Intake Total 1250 / 1250 Balance 1250 / 1250 Intake: Oral 1250 / 1250 Other: # Voids 5 3 Date of Last Bowel Movement 07/30/18 Result Diagrams: 08/01/18 08:26 07/31/18 06:59 Laboratory Results: Laboratory Results - last 24 hr 08/01/18 08:26 WBC 3.0 L RBC 2.92 L Hgb 9.3 L Hct 27.4 L MCV 93.9 MCH 31.8 MCHC 33.9 RDW 16.8 Plt Count 285 MPV 7.2 Neut % (Auto) 72.6 H Lymph % (Auto) 20.1 [place] % (Auto) 6.8 Eos % (Auto) 0.1 Baso % (Auto) 0.4 Neut # (Auto) 2.2 Lymph # (Auto) 0.6 L [place] # (Auto) 0.2 Eos # (Auto) 0.0 Baso # (Auto) 0.0 WBC Differential . Differential Comment Auto diff final Culture Results: Microbiology 07/30/18 11:25 Aerobic Blood Culture - Preliminary Blood - Peripheral No growth in 1 day Anaerobic Blood Culture - Preliminary No growth in 1 day 07/30/18 11:15 Aerobic Blood Culture - Preliminary Blood - Peripheral No growth in 1 day Anaerobic Blood Culture - Preliminary No growth in 1 day 07/30/18 12:30 Influenza Types A,B Antigen - Final Nasal Wash Negative for FLU A and B antigen Infection due to influenza A or B cannot be ruled out since the antigen present in the sample may be below the detection limit of the test. Medications: Active Medications Generic Name Dose Route Start Last Admin Trade Name Freq PRN Reason Stop Dose Admin Albuterol 1 ampul 07/30/18 20:00 08/01/18 07:19 Duoneb Neb (Patricia) NEB 1 ampul Q6HR WHILE AWAKE NEB PATRICIA Administration Aspirin 325 mg 07/31/18 09:00 08/01/18 08:46 Ecotrin PO 325 mg DAILY PATRICIA Administration Atorvastatin Calcium 80 mg 07/31/18 09:00 08/01/18 08:46 Lipitor PO 80 mg DAILY PATRICIA Administration Enoxaparin Sodium 40 mg 07/30/18 16:00 07/31/18 16:51 Lovenox Inj SQ 40 mg Q24H PATRICIA Administration Lorazepam 1 mg 07/31/18 22:19 07/31/18 22:41 Ativan PO 1 mg Q8H PRN Administration ANXIETY Methylprednisolone Sodium Succinate 60 mg 07/31/18 23:00 08/01/18 08:46 Solumedrol Inj IV.PUSH 60 mg Q12HR PATRICIA Administration Montelukast Sodium 10 mg 07/30/18 18:00 07/31/18 17:01 Singulair PO 10 mg QPM PATRICIA Administration Sodium Chloride 2 ml 07/30/18 21:00 08/01/18 08:47 Ns Flush IV.FLUSH 2 ml BID PATRICIA Administration Objective Remarks: GENERAL: Well-nourished, well-developed elderly male patient, in no acute distress. SKIN: Warm and dry. HEAD: Normocephalic. EYES: No scleral icterus. No injection or drainage. NECK: Supple, trachea midline. CARDIOVASCULAR: Regular rate and rhythm without murmurs. RESPIRATORY: Posterior breath sounds clear, equal bilaterally. No accessory muscle use. GASTROINTESTINAL: Abdomen large, soft, non-tender, nondistended. EXTREMITIES: No cyanosis, or edema. MUSCULOSKELETAL: Adequate muscle tone. NEUROLOGICAL: No obvious focal deficit. Awake, alert, and oriented x3. PSYCHIATRIC: Appropriate mood and affect; insight and judgment normal. Assessment/Plan - Plan Mr. Condon is a pleasant 78-year-old gentleman with metastatic prostate cancer, admitted to the hospital with shortness of breath, cough and hypoxia. Recommendations: 1. Metastatic prostate cancer, status post numerous treatments, recently developed progression of disease to bone and lymph nodes. Most recent treatment with single agent Taxotere on 07/20/2018. 2. Hypoxia, CTA was negative for pulmonary embolism, however showing progressive emphysema. This study was compared to a CT chest [facility] on 06/10/2015. I called and discussed with Dr. Brizuela, radiologist, to have him compare with the most recent chest scan. Dr. Brizuela was unable to find any scans of the chest dated since 06/10/2015 at [facility]. CTA is suspicious for interstitial pneumonitis/inflammatory response to the Taxotere versus worsening emphysema. 3. Possible interstitial pneumonitis/inflammatory response to Taxotere, continue Solu-Medrol 60 mg IV every 12 hours. Repeat walk test tomorrow. - Attending Statement The exam, history, and the medical decision-making described in the above note were completed with the assistance of the mid-level provider. I reviewed and agree with the findings presented. I attest that I had a [id number] encounter with the patient on the same day, and personally performed and documented my assessment and findings in the medical record. The rapid and unexpected deterioration in his breathing and the findings on the CT of the thorax suggests that this may be an inflammatory reaction to the chemotherapy. If this is the case I expect that he will improve over the next several days. If this occurs I will discharge him on oral prednisone. If not I would like pulmonary to see as his hypoxia is significant and unexpected. Today he feels better but some of this may be the effects of the steroids.
--- NOTE | 2018-08-01 12:00 | P.PN ---
Subjective Interval history: Follow-up history of metastases prostate cancer/generalized weakness/ interstitial pneumonitis July 31, 2018-patient seen and examined, still with some generalized weakness. Was working with PT this morning. Denies any significant shortness of breath. August 01, 2018-patient seen and examined, reports some shortness of breath. Currently on Solu-Medrol for possible interstitial pneumonitis Physical Exam Vital signs: Vital Signs 07/31/18 12:00 07/31/18 13:04 07/31/18 16:44 Temperature 97.2 F L 97 F L Pulse Rate 88 66 87 Respiratory Rate 16 18 16 Blood Pressure 131/68 142/74 H Pulse Oximetry 94 L 07/31/18 19:00 07/31/18 19:52 07/31/18 20:01 Temperature 96.9 F L Pulse Rate 91 H 93 H 100 H Respiratory Rate 19 20 Blood Pressure 133/52 L Pulse Oximetry 92 L 98 08/01/18 00:00 08/01/18 00:06 08/01/18 03:00 Temperature 98 F Pulse Rate 91 H 102 H 82 Respiratory Rate 18 Blood Pressure 122/60 Pulse Oximetry 93 L 08/01/18 04:46 08/01/18 07:19 Temperature 97.8 F Pulse Rate 93 H 81 Respiratory Rate 18 16 Blood Pressure 147/78 H Pulse Oximetry 91 L 95 Intake & Output 07/31/18 08/01/18 08/01/18 18:59 06:59 18:59 Intake Total 1250 / 1250 Balance 1250 / 1250 Intake: Oral 1250 / 1250 Other: # Voids 5 3 Date of Last Bowel Movement 07/30/18 Narrative: GENERAL: Well-developed, well-nourished, no apparent distress. SKIN: Focused skin assessment warm/dry. Diffuse pallor. HEAD: Atraumatic. Normocephalic. EYES: Pupils equal and round. No scleral icterus. No injection or drainage. Conjunctival pallor. ENT: No nasal bleeding or discharge. Mucous membranes pink and moist. NECK: Trachea midline. No JVD. CARDIOVASCULAR: Regular rate and rhythm. RESPIRATORY: No accessory muscle use. Wheezing appreciated. GASTROINTESTINAL: Abdomen soft, non-tender, nondistended. MUSCULOSKELETAL: No obvious deformities. No clubbing. No cyanosis. TR edema. NEUROLOGICAL: Awake and alert. No obvious cranial nerve deficits. Motor grossly within normal limits. Normal speech. PSYCHIATRIC: Appropriate mood and affect; insight and judgment normal. Results - Labs CBC & Chem 7: 08/01/18 08:26 07/31/18 06:59 Laboratory Results - last 24 hr 08/01/18 08:26 WBC 3.0 L RBC 2.92 L Hgb 9.3 L Hct 27.4 L MCV 93.9 MCH 31.8 MCHC 33.9 RDW 16.8 Plt Count 285 MPV 7.2 Neut % (Auto) 72.6 H Lymph % (Auto) 20.1 [place] % (Auto) 6.8 Eos % (Auto) 0.1 Baso % (Auto) 0.4 Neut # (Auto) 2.2 Lymph # (Auto) 0.6 L [place] # (Auto) 0.2 Eos # (Auto) 0.0 Baso # (Auto) 0.0 WBC Differential . Differential Comment Auto diff final Microbiology 07/30/18 11:25 Blood - Peripheral Aerobic Blood Culture - Preliminary No growth in 2 days 07/30/18 11:25 Blood - Peripheral Anaerobic Blood Culture - Preliminary No growth in 2 days 07/30/18 11:15 Blood - Peripheral Aerobic Blood Culture - Preliminary No growth in 2 days 07/30/18 11:15 Blood - Peripheral Anaerobic Blood Culture - Preliminary No growth in 2 days Assessment and Plan - Plan 78-year-old man Generalized weakness/Prostate cancer/Anemia Multifactorial. He has metastatic prostate cancer and was recently started on chemotherapy. -oncology consult appreciated. -PT evaluation. -follow CBC and transfuse as needed. Interstitial pneumonitis? -2/2 response to Taxotere -The pt has been on Levaquin and prednisone for [address] chest showed: No pulmonary emboli; Progression in the patient's emphysematous changes as well as chronic interstitial change when compared to the prior study; New lymph node involving the right cardiophrenic angle without bulky adenopathy elsewhere; Short-term follow-up CT is suggested to document stability of this nodule. -Now on Solu-Medrol 60 mg IV every 12 hours per oncology -hold off on further antibiotics. -Continue as needed Duonebs. -incentive spirometry. -nasal spray for congestion. -Maintain oxygen saturation above 92%. Hypokalemia-resolved status post replacement PPx: Lovenox
[2018-08-01] MEDS: Enoxaparin Inj 40 MG/0.4 ML Syringe SQ SCH (15:13)
--- NOTE | 2018-08-01 15:17 | P.DCO ---
- Diagnosis (1) Metastatic disease Status: Acute - Physical Therapy Order: Evaluate and treat - Home Health Nursing Order: Signs/symptoms of disease process - Case Management Consult Case Management Consult-Home Health: Yes - Certification I have seen patient Juancho Condon on 08/01/18. My clinical findings support the need for the requested home health care services because: Deconditioned with increased weakness I certify that my clinical findings support that this patient is homebound because: Poor cardiac reserve
[2018-08-01] MEDS: Montelukast 10 MG Tablet PO SCH (17:58)
[2018-08-01] MEDS: Senna/Docusate Sodium 8.6/50 MG Tablet PO PRN (18:00)
[2018-08-01] MEDS: LORazepam 1 MG Tablet PO PRN (21:34)
[2018-08-02 05:23] LABS: Baso % (Auto) 0.2 % (0.0-2.0); Eos % (Auto) 0.1 % (0.0-4.0); Hematocrit 24.3 % (39.0-51.0); Hemoglobin 8.6 gm/dL (13.0-17.0); Lymph # (Auto) 0.6 th/mm3 (1.0-4.8); Lymph % (Auto) 11.6 % (9.0-44.0); Mean Corpuscular HGB Conc 35.4 % (32.0-36.0); Mean Corpuscular Hemoglobin 32.6 pg (27.0-34.0); Mean Corpuscular Volume 92.1 fL (80.0-100.0); Mono # (Auto) 0.4 th/mm3 (0.0-0.9); Mono % (Auto) 8.5 % (0.0-8.0); Neut # (Auto) 3.8 th/mm3 (1.8-7.7); Neut % (Auto) 79.6 % (16.0-70.0); Platelet Count 303 th/mm3 (150-450); Red Blood Count 2.63 mil/mm3 (4.50-5.90); Red Cell Distribution Width 16.9 % (11.6-17.2); White Blood Count 4.7 th/mm3 (4.0-11.0)
[2018-08-02 05:58] LABS: Alanine Aminotransferase 20 U/L (12-78); Albumin 2.5 g/dL (3.4-5.0); Alkaline Phosphatase 63 U/L (45-117); Anion Gap 10 meq/L (5-15); Aspartate Aminotransferase 20 U/L (15-37); Blood Urea Nitrogen 21 mg/dL (7-18); Calcium 8.1 mg/dL (8.5-10.1); Carbon Dioxide 22.8 meq/L (21.0-32.0); Chloride 111 meq/L (98-107); Glomerular Filtration Rate 55 mL/min (>89); Glucose,Random 280 mg/dL (74-106); Potassium 3.8 meq/L (3.5-5.1); Sodium 144 meq/L (136-145); Total Protein 6.1 g/dL (6.4-8.2)
[2018-08-02 07:56] LABS: Lymphocytes 8 % (9-44); Monocytes 4 % (0-8); Myelocytes 2 % (0-0); Platelet Estimate Normal (Normal); Platelet Morphology Normal (Normal); Tallied Nucleated RBC 2 (0-0)
[2018-08-02] MEDS: MethylPREDNISolone Sod Succinate Inj 125 MG/2 ML Vial IV.PUSH SCH ×2 (08:29→21:00)
[2018-08-02] MEDS: Senna/Docusate Sodium 8.6/50 MG Tablet PO PRN ×2 (08:29→21:00)
[2018-08-02] MEDS: Sodium Chloride 0.9% 2 ML Flush BID IV.FLUSH SCH ×2 (08:29→21:01)
[2018-08-02] MEDS: Benzonatate 100 MG Capsule PO PRN ×2 (08:31→21:00)
[2018-08-02] MEDS ORDERED: Dextrose 50% in Water 50 ML Vial IV.PUSH PRN (11:47)
--- NOTE | 2018-08-02 11:52 | P.PN ---
Subjective Interval history: Follow-up history of metastases prostate cancer/generalized weakness/ interstitial pneumonitis July 31, 2018-patient seen and examined, still with some generalized weakness. Was working with PT this morning. Denies any significant shortness of breath. August 01, 2018-patient seen and examined, reports some shortness of breath. Currently on Solu-Medrol for possible interstitial pneumonitis August 02, 2018-patient seen and examined, states he is feeling much better now, denies any chest pain or shortness of breath. Ambulates without any significant complaints of SOB Physical Exam Vital signs: Vital Signs 08/01/18 12:00 08/01/18 13:13 08/01/18 14:47 Temperature 97.7 F Pulse Rate 99 H 100 H 109 H Respiratory Rate 16 16 Blood Pressure 151/69 H Pulse Oximetry 92 L 08/01/18 15:21 08/01/18 19:18 08/01/18 19:57 Temperature 97.5 F L 98.1 F Pulse Rate 112 H 102 H 101 H Respiratory Rate 22 20 Blood Pressure 129/65 128/53 L Pulse Oximetry 93 L 93 L 08/01/18 20:09 08/01/18 20:19 08/01/18 23:02 Temperature 98.6 F Pulse Rate 76 107 H Respiratory Rate 19 20 Blood Pressure 124/56 L Pulse Oximetry 90 L 96 94 L 08/02/18 00:09 08/02/18 00:40 08/02/18 03:52 Temperature Pulse Rate 95 H 85 Respiratory Rate 18 Blood Pressure Pulse Oximetry 08/02/18 04:00 08/02/18 07:29 Temperature 97.5 F L Pulse Rate 88 107 H Respiratory Rate 20 20 Blood Pressure 151/69 H Pulse Oximetry 94 L 95 Intake & Output 08/01/18 08/02/18 08/02/18 18:59 06:59 18:59 Intake Total 1030 / 1030 480 / 480 Output Total 200 / 200 375 / 375 Balance 830 / 830 105 / 105 Weight 89.2 kg Intake: Oral 1030 / 1030 480 / 480 Output: Urine 200 / 200 375 / 375 Other: # Voids 4 Date of Last Bowel Movement 07/31/18 07/31/18 Narrative: GENERAL: Well-developed, well-nourished, no apparent distress. SKIN: Focused skin assessment warm/dry. Diffuse pallor. HEAD: Atraumatic. Normocephalic. EYES: Pupils equal and round. No scleral icterus. No injection or drainage. Conjunctival pallor. ENT: No nasal bleeding or discharge. Mucous membranes pink and moist. NECK: Trachea midline. No JVD. CARDIOVASCULAR: Regular rate and rhythm. RESPIRATORY: No accessory muscle use. Wheezing appreciated. GASTROINTESTINAL: Abdomen soft, non-tender, nondistended. MUSCULOSKELETAL: No obvious deformities. No clubbing. No cyanosis. TR edema. NEUROLOGICAL: Awake and alert. No obvious cranial nerve deficits. Motor grossly within normal limits. Normal speech. PSYCHIATRIC: Appropriate mood and affect; insight and judgment normal. Results - Labs CBC & Chem 7: 08/02/18 04:35 08/02/18 04:35 Laboratory Results - last 24 hr 08/02/18 08/02/18 04:35 04:35 WBC 4.7 D RBC 2.63 L Hgb 8.6 L Hct 24.3 L MCV 92.1 MCH 32.6 MCHC 35.4 RDW 16.9 Plt Count 303 MPV 7.0 Prelim Diff (Auto) Slide review pending Neut % (Auto) 79.6 H Lymph % (Auto) 11.6 [place] % (Auto) 8.5 H Eos % (Auto) 0.1 Baso % (Auto) 0.2 Neut # (Auto) 3.8 Lymph # (Auto) 0.6 L [place] # (Auto) 0.4 Eos # (Auto) 0.0 Baso # (Auto) 0.0 WBC Differential Manual diff final Seg Neuts % (Manual) 80 H Band Neuts % (Manual) 5 Lymphocytes % (Manual) 8 L Monocytes % (Manual) 4 Basophils % (Manual) 1 Myelocytes % (Man) 2 H Abs Neuts (Manual) 4.1 Nucleated RBCs/100 WBC 2 H Differential Comment . Platelet Estimate Normal Platelet Morphology Normal Sodium 144 Potassium 3.8 Chloride 111 H Carbon Dioxide 22.8 Anion Gap 10 BUN 21 H Creatinine 1.26 Estimated GFR 55 L Random Glucose 280 H D Calcium 8.1 L Total Bilirubin 0.3 AST 20 ALT 20 Alkaline Phosphatase 63 Total Protein 6.1 L Albumin 2.5 L Microbiology 07/30/18 11:25 Blood - Peripheral Aerobic Blood Culture - Preliminary No growth in 3 days 07/30/18 11:25 Blood - Peripheral Anaerobic Blood Culture - Preliminary No growth in 3 days 07/30/18 11:15 Blood - Peripheral Aerobic Blood Culture - Preliminary No growth in 3 days 07/30/18 11:15 Blood - Peripheral Anaerobic Blood Culture - Preliminary No growth in 3 days Assessment and Plan - Assessment (1) Metastatic disease Code(s): C79.9 - Secondary malignant neoplasm of unspecified site Status: Acute - Plan 78-year-old man Generalized weakness/Prostate cancer/Anemia Multifactorial. He has metastatic prostate cancer and was recently started on chemotherapy. -oncology consult appreciated. -PT evaluation. Interstitial pneumonitis? -2/2 response to Taxotere -The pt has been on Levaquin and prednisone for [address] chest showed: No pulmonary emboli; Progression in the patient's emphysematous changes as well as chronic interstitial change when compared to the prior study; New lymph node involving the right cardiophrenic angle without bulky adenopathy elsewhere; Short-term follow-up CT is suggested to document stability of this nodule. -Now on Solu-Medrol 60 mg IV every 12 hours per oncology. Start ISS for hyperglycemia prophylaxis -hold off on further antibiotics. -Continue as needed Duonebs. -incentive spirometry. -Maintain oxygen saturation above 92%. Hypokalemia-resolved status post replacement PPx: Lovenox
--- NOTE | 2018-08-02 12:50 | P.PNONC ---
Subjective Interval history: States he feels a little better. Unfortunately when I took his oxygen off and had him walk around the O2 sat again dropped but this time briefly went to his low as 79%. After a minute of standing still the O2 sat climbed to 90% without oxygen Objective Vital Signs/Intake & Output: Vital Signs 08/01/18 13:13 08/01/18 14:47 08/01/18 15:21 Temperature 97.5 F L Pulse Rate 100 H 109 H 112 H Respiratory Rate 16 22 Blood Pressure 129/65 Pulse Oximetry 93 L 08/01/18 19:18 08/01/18 19:57 08/01/18 20:09 Temperature 98.1 F Pulse Rate 102 H 101 H 76 Respiratory Rate 20 19 Blood Pressure 128/53 L Pulse Oximetry 93 L 90 L 08/01/18 20:19 08/01/18 23:02 08/02/18 00:09 Temperature 98.6 F Pulse Rate 107 H 95 H Respiratory Rate 20 Blood Pressure 124/56 L Pulse Oximetry 96 94 L 08/02/18 00:40 08/02/18 03:52 08/02/18 04:00 Temperature 97.5 F L Pulse Rate 85 88 Respiratory Rate 18 20 Blood Pressure 151/69 H Pulse Oximetry 94 L 08/02/18 07:29 Temperature Pulse Rate 107 H Respiratory Rate 20 Blood Pressure Pulse Oximetry 95 Intake & Output 08/01/18 08/02/18 08/02/18 18:59 06:59 18:59 Intake Total 1030 / 1030 480 / 480 Output Total 200 / 200 375 / 375 Balance 830 / 830 105 / 105 Weight 89.2 kg Intake: Oral 1030 / 1030 480 / 480 Output: Urine 200 / 200 375 / 375 Other: # Voids 4 Date of Last Bowel Movement 07/31/18 07/31/18 Result Diagrams: 08/02/18 04:35 08/02/18 04:35 Laboratory Results: Laboratory Results - last 24 hr 08/02/18 08/02/18 04:35 04:35 WBC 4.7 D RBC 2.63 L Hgb 8.6 L Hct 24.3 L MCV 92.1 MCH 32.6 MCHC 35.4 RDW 16.9 Plt Count 303 MPV 7.0 Prelim Diff (Auto) Slide review pending Neut % (Auto) 79.6 H Lymph % (Auto) 11.6 [place] % (Auto) 8.5 H Eos % (Auto) 0.1 Baso % (Auto) 0.2 Neut # (Auto) 3.8 Lymph # (Auto) 0.6 L [place] # (Auto) 0.4 Eos # (Auto) 0.0 Baso # (Auto) 0.0 WBC Differential Manual diff final Seg Neuts % (Manual) 80 H Band Neuts % (Manual) 5 Lymphocytes % (Manual) 8 L Monocytes % (Manual) 4 Basophils % (Manual) 1 Myelocytes % (Man) 2 H Abs Neuts (Manual) 4.1 Nucleated RBCs/100 WBC 2 H Differential Comment . Platelet Estimate Normal Platelet Morphology Normal Sodium 144 Potassium 3.8 Chloride 111 H Carbon Dioxide 22.8 Anion Gap 10 BUN 21 H Creatinine 1.26 Estimated GFR 55 L Random Glucose 280 H D Calcium 8.1 L Total Bilirubin 0.3 AST 20 ALT 20 Alkaline Phosphatase 63 Total Protein 6.1 L Albumin 2.5 L Culture Results: Microbiology 07/30/18 11:25 Aerobic Blood Culture - Preliminary Blood - Peripheral No growth in 3 days Anaerobic Blood Culture - Preliminary No growth in 3 days 07/30/18 11:15 Aerobic Blood Culture - Preliminary Blood - Peripheral No growth in 3 days Anaerobic Blood Culture - Preliminary No growth in 3 days 07/30/18 12:30 Influenza Types A,B Antigen - Final Nasal Wash Negative for FLU A and B antigen Infection due to influenza A or B cannot be ruled out since the antigen present in the sample may be below the detection limit of the test. Medications: Active Medications Generic Name Dose Route Start Last Admin Trade Name Freq PRN Reason Stop Dose Admin Albuterol 1 ampul 07/30/18 20:00 08/02/18 07:26 Duoneb Neb (Patricia) NEB 1 ampul Q6HR WHILE AWAKE NEB PATRICIA Administration Aspirin 325 mg 07/31/18 09:00 08/02/18 08:29 Ecotrin PO 325 mg DAILY PATRICIA Administration Atorvastatin Calcium 80 mg 07/31/18 09:00 08/02/18 08:29 Lipitor PO 80 mg DAILY PATRICIA Administration Benzonatate 100 mg 08/01/18 21:29 08/02/18 08:31 Tessalon Perles PO 100 mg Q8H PRN Administration COUGH Enoxaparin Sodium 40 mg 07/30/18 16:00 08/01/18 15:13 Lovenox Inj SQ 40 mg Q24H PATRICIA Administration Lorazepam 1 mg 07/31/18 22:19 08/01/18 21:34 Ativan PO 1 mg Q8H PRN Administration ANXIETY Methylprednisolone Sodium Succinate 60 mg 07/31/18 23:00 08/02/18 08:29 Solumedrol Inj IV.PUSH 60 mg Q12HR PATRICIA Administration Montelukast Sodium 10 mg 07/30/18 18:00 08/01/18 17:58 Singulair PO 10 mg QPM PATRICIA Administration Senna/Docusate Sodium 1 tab 08/01/18 15:39 08/02/18 08:29 Gisell-Colace PO 1 tab BID PRN Administration CONSTIPATION Sodium Chloride 2 ml 07/30/18 21:00 08/02/18 08:29 Ns Flush IV.FLUSH 2 ml BID PATRICIA Administration Objective Remarks: GENERAL: Appears well and short of breath only if walking without oxygen SKIN: Warm and dry. HEAD: Normocephalic. EYES: No scleral icterus. No injection or drainage. NECK: Supple, trachea midline. No JVD or lymphadenopathy. LYMPHATIC: No adenopathy. CARDIOVASCULAR: Regular rate and rhythm without murmurs. RESPIRATORY: Mostly clear, occasional rale GASTROINTESTINAL: Abdomen soft, non-tender, nondistended. EXTREMITIES: No cyanosis, or edema. MUSCULOSKELETAL: Adequate muscle tone. NEUROLOGICAL: No obvious focal deficit. Awake, alert, and oriented x3. PSYCHIATRIC: Appropriate mood and affect; insight and judgment normal. Assessment/Plan - Plan Mr. Condon is a pleasant 78-year-old gentleman with metastatic prostate cancer, admitted to the hospital with shortness of breath, cough and hypoxia. I was not able to find a recent CT scan of the thorax for comparison. I was able to find a CAT scan of the abdomen and pelvis done recently at [place]. The lung bases appeared clear except for moderate underlying emphysema. I did not see any groundglass infiltrates at the lung bases on the recent CT of the abdomen and pelvis and therefore I am still concerned that we have an allergic pneumonitis and not simply worsening emphysema or a pneumonia. He is not better today, if one uses the O2 sat off oxygen with exertion to gauge his progress Recommendations: 1: I would recommend continuing the Solu-Medrol. He will need control of his blood sugars. If there is no improvement in the next 24-48 hours I will ask for a pulmonary consult. He is now clearly oxygen dependent unless he is sitting at rest. Exertion without oxygen brings on significant hypoxia. Will repeat the oxygen saturation tomorrow, again without oxygen after walking.
[2018-08-02] MEDS: Insulin NovoLOG Aspart Correctional Sugar Inj SQ SCH ×3 (13:39→21:01)
[2018-08-02] MEDS: Montelukast 10 MG Tablet PO SCH (17:44)
[2018-08-02] MEDS: Enoxaparin Inj 40 MG/0.4 ML Syringe SQ SCH (17:44)
[2018-08-02] MEDS: LORazepam 1 MG Tablet PO PRN (21:00)
[2018-08-03 05:20] LABS: Alanine Aminotransferase 22 U/L (12-78); Albumin 2.5 g/dL (3.4-5.0); Anion Gap 10 meq/L (5-15); Aspartate Aminotransferase 19 U/L (15-37); Blood Urea Nitrogen 24 mg/dL (7-18); Calcium 8.5 mg/dL (8.5-10.1); Carbon Dioxide 23.2 meq/L (21.0-32.0); Chloride 110 meq/L (98-107); Glomerular Filtration Rate 63 mL/min (>89); Glucose,Random 287 mg/dL (74-106); Potassium 3.9 meq/L (3.5-5.1); Sodium 143 meq/L (136-145)
[2018-08-03 05:22] LABS: Alkaline Phosphatase 64 U/L (45-117); Total Protein 6.1 g/dL (6.4-8.2)
[2018-08-03] MEDS: MethylPREDNISolone Sod Succinate Inj 125 MG/2 ML Vial IV.PUSH SCH ×2 (09:19→21:01)
[2018-08-03] MEDS: Sodium Chloride 0.9% 2 ML Flush BID IV.FLUSH SCH ×2 (09:20→21:07)
[2018-08-03] MEDS: Insulin NovoLOG Aspart Correctional Sugar Inj SQ SCH ×3 (09:20→21:03)
--- NOTE | 2018-08-03 11:18 | P.PN ---
Subjective Interval history: Follow-up history of metastases prostate cancer/generalized weakness/ interstitial pneumonitis July 31, 2018-patient seen and examined, still with some generalized weakness. Was working with PT this morning. Denies any significant shortness of breath. August 01, 2018-patient seen and examined, reports some shortness of breath. Currently on Solu-Medrol for possible interstitial pneumonitis August 02, 2018-patient seen and examined, states he is feeling much better now, denies any chest pain or shortness of breath. Ambulates without any significant complaints of SOB August 03, 2018-patient seen and examined, breathing better and states his condition has improved a lot since admission Physical Exam Vital signs: Vital Signs 08/02/18 12:00 08/02/18 12:50 08/02/18 13:04 Temperature Pulse Rate 102 H 92 H Respiratory Rate 20 23 Blood Pressure 156/71 H Pulse Oximetry 94 L Pulse Oximetry [Resting on Room Air] 87 L Pulse Oximetry [Resting with Oxygen] 94 L 08/02/18 15:41 08/02/18 20:00 08/02/18 21:36 Temperature 97.6 F Pulse Rate 106 H 95 H 94 H Respiratory Rate 20 16 Blood Pressure 147/60 H Pulse Oximetry 93 L 92 L Pulse Oximetry [Resting on Room Air] Pulse Oximetry [Resting with Oxygen] 08/03/18 00:00 08/03/18 04:00 08/03/18 07:00 Temperature 97.4 F L 97.1 F L Pulse Rate 103 H 88 86 Respiratory Rate 18 16 Blood Pressure 103/58 L 108/49 L Pulse Oximetry 96 96 Pulse Oximetry [Resting on Room Air] Pulse Oximetry [Resting with Oxygen] 08/03/18 07:21 08/03/18 08:00 Temperature 97.6 F Pulse Rate 90 97 H Respiratory Rate 16 Blood Pressure 132/64 Pulse Oximetry 93 L Pulse Oximetry [Resting on Room Air] Pulse Oximetry [Resting with Oxygen] Intake & Output 08/02/18 08/03/18 08/03/18 18:59 06:59 18:59 Intake Total 1520 / 1520 960 / 960 Output Total 375 / 375 1325 / 1325 Balance 1145 / 1145 -365 / -365 Weight 89.1 kg Intake: Oral 1520 / 1520 960 / 960 Output: Urine 375 / 375 1325 / 1325 Other: # Voids 4 Date of Last Bowel Movement 07/31/18 07/31/18 08/03/18 Narrative: GENERAL: Well-developed, well-nourished, no apparent distress. SKIN: Focused skin assessment warm/dry. Diffuse pallor. HEAD: Atraumatic. Normocephalic. EYES: Pupils equal and round. No scleral icterus. No injection or drainage. Conjunctival pallor. ENT: No nasal bleeding or discharge. Mucous membranes pink and moist. NECK: Trachea midline. No JVD. CARDIOVASCULAR: Regular rate and rhythm. RESPIRATORY: No accessory muscle use GASTROINTESTINAL: Abdomen soft, non-tender, nondistended. MUSCULOSKELETAL: No obvious deformities. No clubbing. No cyanosis. TR edema. NEUROLOGICAL: Awake and alert. No obvious cranial nerve deficits. Motor grossly within normal limits. Normal speech. PSYCHIATRIC: Appropriate mood and affect; insight and judgment normal. Results - Labs CBC & Chem 7: 08/02/18 04:35 08/03/18 04:35 Laboratory Results - last 24 hr 08/02/18 08/02/18 08/03/18 17:46 20:36 04:35 Sodium 143 Potassium 3.9 Chloride 110 H Carbon Dioxide 23.2 Anion Gap 10 BUN 24 H Creatinine 1.13 Estimated GFR 63 L POC Glucose 335 H 222 H Random Glucose 287 H Calcium 8.5 Total Bilirubin 0.3 AST 19 ALT 22 Alkaline Phosphatase 64 Total Protein 6.1 L Albumin 2.5 L 08/03/18 07:56 Sodium Potassium Chloride Carbon Dioxide Anion Gap BUN Creatinine Estimated GFR POC Glucose 280 H Random Glucose Calcium Total Bilirubin AST ALT Alkaline Phosphatase Total Protein Albumin Microbiology 07/30/18 11:25 Blood - Peripheral Aerobic Blood Culture - Preliminary No growth in 4 days 07/30/18 11:25 Blood - Peripheral Anaerobic Blood Culture - Preliminary No growth in 4 days 07/30/18 11:15 Blood - Peripheral Aerobic Blood Culture - Preliminary No growth in 4 days 07/30/18 11:15 Blood - Peripheral Anaerobic Blood Culture - Preliminary No growth in 4 days Assessment and Plan - Assessment (1) Metastatic disease Code(s): C79.9 - Secondary malignant neoplasm of unspecified site Status: Acute - Plan 78-year-old man Generalized weakness/Prostate cancer/Anemia Multifactorial. He has metastatic prostate cancer and was recently started on chemotherapy. -oncology consult appreciated. -PT evaluation. Interstitial pneumonitis? -2/2 response to Taxotere -The pt has been on Levaquin and prednisone for [address] chest showed: No pulmonary emboli; Progression in the patient's emphysematous changes as well as chronic interstitial change when compared to the prior study; New lymph node involving the right cardiophrenic angle without bulky adenopathy elsewhere; Short-term follow-up CT is suggested to document stability of this nodule. -Now on Solu-Medrol 60 mg IV every 12 hours per oncology. Continue ISS for hyperglycemia prophylaxis -may consider Pulmonary medicine consultation if no improvement -hold off on further antibiotics. -Continue as needed Duonebs. -incentive spirometry. -Maintain oxygen saturation above 92%. Hypokalemia-resolved status post replacement PPx: Lovenox
--- NOTE | 2018-08-03 11:40 | P.PNONC ---
Subjective Interval history: Afebrile. O2 sat at rest 98% on 3 L via nasal cannula. O2 sat on room air while resting 96%. Patient ambulated 10 feet and O2 sat dropped to 80%. He is still with unproductive cough. Patient states "I am tired of being here, I have so much to do" discussed side effects of IV steroids, encouragement provided. Objective Vital Signs/Intake & Output: Vital Signs 08/02/18 12:00 08/02/18 12:50 08/02/18 13:04 Temperature Pulse Rate 102 H 92 H Respiratory Rate 20 23 Blood Pressure 156/71 H Pulse Oximetry 94 L Pulse Oximetry [Resting on Room Air] 87 L Pulse Oximetry [Resting with Oxygen] 94 L 08/02/18 15:41 08/02/18 20:00 08/02/18 21:36 Temperature 97.6 F Pulse Rate 106 H 95 H 94 H Respiratory Rate 20 16 Blood Pressure 147/60 H Pulse Oximetry 93 L 92 L Pulse Oximetry [Resting on Room Air] Pulse Oximetry [Resting with Oxygen] 08/03/18 00:00 08/03/18 04:00 08/03/18 07:00 Temperature 97.4 F L 97.1 F L Pulse Rate 103 H 88 86 Respiratory Rate 18 16 Blood Pressure 103/58 L 108/49 L Pulse Oximetry 96 96 Pulse Oximetry [Resting on Room Air] Pulse Oximetry [Resting with Oxygen] 08/03/18 07:21 08/03/18 08:00 Temperature 97.6 F Pulse Rate 90 97 H Respiratory Rate 16 Blood Pressure 132/64 Pulse Oximetry 93 L Pulse Oximetry [Resting on Room Air] Pulse Oximetry [Resting with Oxygen] Intake & Output 08/02/18 08/03/18 08/03/18 18:59 06:59 18:59 Intake Total 1520 / 1520 960 / 960 Output Total 375 / 375 1325 / 1325 Balance 1145 / 1145 -365 / -365 Weight 89.1 kg Intake: Oral 1520 / 1520 960 / 960 Output: Urine 375 / 375 1325 / 1325 Other: # Voids 4 Date of Last Bowel Movement 07/31/18 07/31/18 08/03/18 Result Diagrams: 08/02/18 04:35 08/03/18 04:35 Laboratory Results: Laboratory Results - last 24 hr 08/02/18 08/02/18 08/03/18 17:46 20:36 04:35 Sodium 143 Potassium 3.9 Chloride 110 H Carbon Dioxide 23.2 Anion Gap 10 BUN 24 H Creatinine 1.13 Estimated GFR 63 L POC Glucose 335 H 222 H Random Glucose 287 H Calcium 8.5 Total Bilirubin 0.3 AST 19 ALT 22 Alkaline Phosphatase 64 Total Protein 6.1 L Albumin 2.5 L 08/03/18 08/03/18 07:56 11:23 Sodium Potassium Chloride Carbon Dioxide Anion Gap BUN Creatinine Estimated GFR POC Glucose 280 H 243 H Random Glucose Calcium Total Bilirubin AST ALT Alkaline Phosphatase Total Protein Albumin Culture Results: Microbiology 07/30/18 11:25 Aerobic Blood Culture - Preliminary Blood - Peripheral No growth in 4 days Anaerobic Blood Culture - Preliminary No growth in 4 days 07/30/18 11:15 Aerobic Blood Culture - Preliminary Blood - Peripheral No growth in 4 days Anaerobic Blood Culture - Preliminary No growth in 4 days Medications: Active Medications Generic Name Dose Route Start Last Admin Trade Name Freq PRN Reason Stop Dose Admin Albuterol 1 ampul 07/30/18 20:00 08/03/18 07:21 Duoneb Neb (Patricia) NEB 1 ampul Q6HR WHILE AWAKE NEB PATRICIA Administration Aspirin 325 mg 07/31/18 09:00 08/03/18 09:20 Ecotrin PO 325 mg DAILY PATRICIA Administration Atorvastatin Calcium 80 mg 07/31/18 09:00 08/03/18 09:20 Lipitor PO 80 mg DAILY PATRICIA Administration Benzonatate 100 mg 08/01/18 21:29 08/02/18 21:00 Tessalon Perles PO 100 mg Q8H PRN Administration COUGH Enoxaparin Sodium 40 mg 07/30/18 16:00 08/02/18 17:44 Lovenox Inj SQ 40 mg Q24H PATRICIA Administration Insulin Aspart 0 unit 08/02/18 12:00 08/03/18 09:20 Novolog Insulin Correctional Sugar Inj SQ 7 unit ACHS PATRICIA Administration Protocol Lorazepam 1 mg 07/31/18 22:19 08/02/18 21:00 Ativan PO 1 mg Q8H PRN Administration ANXIETY Methylprednisolone Sodium Succinate 60 mg 07/31/18 23:00 08/03/18 09:19 Solumedrol Inj IV.PUSH 60 mg Q12HR PATRICIA Administration Montelukast Sodium 10 mg 07/30/18 18:00 08/02/18 17:44 Singulair PO 10 mg QPM PATRICIA Administration Senna/Docusate Sodium 1 tab 08/01/18 15:39 08/02/18 21:00 Gisell-Colace PO 1 tab BID PRN Administration CONSTIPATION Sodium Chloride 2 ml 07/30/18 21:00 08/03/18 09:20 Ns Flush IV.FLUSH 2 ml BID PATRICIA Administration Objective Remarks: GENERAL: Well-nourished, well-developed elderly male patient, in no acute distress. SKIN: Warm and dry. HEAD: Normocephalic. EYES: No scleral icterus. No injection or drainage. NECK: Supple, trachea midline. CARDIOVASCULAR: Regular rate and rhythm without murmurs. RESPIRATORY: Posterior breath sounds clear, equal bilaterally. Nonlabored at rest. O2 sat drops with ambulation, 10 feet-> 80%. GASTROINTESTINAL: Abdomen large, soft, non-tender, nondistended. EXTREMITIES: No cyanosis, or edema. MUSCULOSKELETAL: Adequate muscle tone. NEUROLOGICAL: No obvious focal deficit. Awake, alert, and oriented x3. PSYCHIATRIC: Appropriate mood and affect, anxious; insight and judgment normal. Assessment/Plan - Plan Mr. Condon is a pleasant 78-year-old gentleman with metastatic prostate cancer, admitted to the hospital with shortness of breath, cough and hypoxia. I was not able to find a recent CT scan of the thorax for comparison. I was able to find a CAT scan of the abdomen and pelvis done recently at [place]. The lung bases appeared clear except for moderate underlying emphysema. I did not see any groundglass infiltrates at the lung bases on the recent CT of the abdomen and pelvis and therefore I am still concerned that we have an allergic pneumonitis and not simply worsening emphysema or a pneumonia. He is not better today, if one uses the O2 sat off oxygen with exertion to gauge his progress Recommendations: 1. Possible pneumonitis, continue IV steroids. 2. Hypoxia with ambulation. O2 saturation at rest on 3 L 98%, room air at rest 96%, ambulating 10 feet on room air 80%. 3. Consult pulmonology. 4. Patient okay to shower, discussed with RN.
[2018-08-03 16:41] LABS: ABG Base Excess -1.6 mmol/L (-2-2); ABG PCO2 28 mmHg (38-42); ABG PO2 50 mmHG (61-120)
--- NOTE | 2018-08-03 17:33 | MB ---
cc: Ernesto Zamorano MD DATE: 08/03/2018 REQUESTING PHYSICIAN: Jerrod Sidhu MD REASON FOR CONSULTATION: Evaluate for shortness of breath and COPD. HISTORY OF PRESENT ILLNESS: Mr. oCndon is a pleasant 78-year-old male with metastatic prostate carcinoma. He had radical prostatectomy done, and received radiation treatment and chemotherapy. Recently he has been having increasing shortness of breath. He took a reduced dose of Taxotere 50 mcg, and the patient was complaining of sinus problem and he took antibiotic course with Levaquin. The patient felt that after that his symptoms have been getting worse. Because of the worsening of his symptoms, he came to the hospital. He wanted to go home; however, he was desaturating on ambulation and he decided to stay over here. He had a workup done. CT of the chest does not show any pulmonary embolism. It shows ground glass infiltrates, along with worsening of his underlying emphysema. His CBC, total bilirubin is 14.7, hemoglobin 8.6, hematocrit 24.3, MCV 92, platelet count 303. Sodium 143, potassium 3.9, chloride 110, CO2 of 23, BUN 24, creatinine 1.13. PAST MEDICAL HISTORY: 1. Significant with history of metastatic prostate carcinoma, status post radical prostatectomy chemotherapy and radiation treatment. 2. History of cataract surgery done. 3. History of carotid surgery. 4. History of sphincter repair. MEDICATIONS: He is currently takin. Singulair 10 mg a day. 2. Solu-Medrol 60 mg every 12 hours. 3. Lorazepam as needed. 4. Lovenox 40 mg a day. 5. Tessalon 100 mg 3 times a day. 6. Lipitor 80 mg a day. 7. Aspirin 81 mg a day. 8. Nebulizer treatment with DuoNeb. ALLERGIES: NO KNOWN DRUG ALLERGIES. SOCIAL HISTORY: He is , has a history of smoking, which he quit 20 years ago. He used to drink, which he quit, he has not drank in the last month. He worked in the [employer] and in the [employer] office. He is . He has no children. REVIEW OF SYSTEMS: Normally up around and active. Weight is stable. No DVT, pulmonary embolism. PHYSICAL EXAMINATION: GENERAL: Reveals a pleasant, elderly man, in no distress at rest. VITAL SIGNS: Blood pressure 129/62, heart rate 102, respirations 90, respirations 16, temperature 97.7. HEENT: Pupils are equal and reactive to light. He has bilateral cataract surgery. Normal oral mucosa and nasal mucosa normal. NECK: Supple. JVP not raised. CHEST: Equal breath. He has few rhonchi. HEART: S1, S2 normal. ABDOMEN: Benign. EXTREMITIES: No edema. IMPRESSION: 1. Worsening of his shortness of breath and hypoxia with ground glass infiltrate, possible inflammatory reaction or hypersensitivity pneumonia. 2. Underlying chronic obstructive pulmonary disease. 3. hypoxia. 4. Metastatic prostate carcinoma. 5. History of carotid endarterectomy. PLAN: I have discussed with the patient. He is on IV Solu-Medrol. I will check his room air blood gas, also determine if he is going to need any home oxygen. Recheck his blood gas. Check a bedside pulmonary function study. Continue IV Solu-Medrol, aerosol treatments, supplemental oxygen. Further treatment will depend on the course in the hospital. Thank you, Dr. Sidhu, for this consult. MD TONY Moser/bird/ed , 03:26 PM , 03:36 PM MTDD
[2018-08-03] MEDS: Montelukast 10 MG Tablet PO SCH (17:35)
[2018-08-03] MEDS: Enoxaparin Inj 40 MG/0.4 ML Syringe SQ SCH (17:35)
[2018-08-03] MEDS: LORazepam 1 MG Tablet PO PRN (21:03)
[2018-08-04 05:05] LABS: Baso % (Auto) 0.1 % (0.0-2.0); Hematocrit 23.7 % (39.0-51.0); Hemoglobin 8.3 gm/dL (13.0-17.0); Lymph # (Auto) 0.8 th/mm3 (1.0-4.8); Lymph % (Auto) 11.9 % (9.0-44.0); Mean Corpuscular Hemoglobin 32.3 pg (27.0-34.0); Mean Corpuscular Volume 92.2 fL (80.0-100.0); Mean Platelet Volume 7.3 fL (7.0-11.0); Mono # (Auto) 0.9 th/mm3 (0.0-0.9); Mono % (Auto) 12.6 % (0.0-8.0); Neut # (Auto) 5.1 th/mm3 (1.8-7.7); Neut % (Auto) 75.4 % (16.0-70.0); Platelet Count 292 th/mm3 (150-450); Red Blood Count 2.57 mil/mm3 (4.50-5.90); Red Cell Distribution Width 17.5 % (11.6-17.2); White Blood Count 6.8 th/mm3 (4.0-11.0)
[2018-08-04 05:25] LABS: Alanine Aminotransferase 25 U/L (12-78); Albumin 2.3 g/dL (3.4-5.0); Anion Gap 4 meq/L (5-15); Aspartate Aminotransferase 18 U/L (15-37); Blood Urea Nitrogen 27 mg/dL (7-18); Calcium 7.9 mg/dL (8.5-10.1); Carbon Dioxide 26.8 meq/L (21.0-32.0); Chloride 110 meq/L (98-107); Glomerular Filtration Rate 60 mL/min (>89); Glucose,Random 260 mg/dL (74-106); Potassium 4.6 meq/L (3.5-5.1); Sodium 141 meq/L (136-145)
[2018-08-04 05:28] LABS: Alkaline Phosphatase 56 U/L (45-117); Total Protein 5.6 g/dL (6.4-8.2)
[2018-08-04 08:03] LABS: Lymphocytes 11 % (9-44); Monocytes 9 % (0-8); Myelocytes 2 % (0-0); Tallied Nucleated RBC 6 (0-0)
[2018-08-04 08:04] LABS: Ovalocytes 1+; Platelet Estimate Normal (Normal); Platelet Morphology Normal (Normal)
[2018-08-04] MEDS: MethylPREDNISolone Sod Succinate Inj 125 MG/2 ML Vial IV.PUSH SCH ×2 (08:11→20:58)
[2018-08-04] MEDS: Insulin NovoLOG Aspart Correctional Sugar Inj SQ SCH ×4 (08:11→21:01)
[2018-08-04] MEDS: Sodium Chloride 0.9% 2 ML Flush BID IV.FLUSH SCH ×2 (08:12→21:00)
--- NOTE | 2018-08-04 11:14 | P.PN ---
Subjective Interval history: Follow-up history of metastases prostate cancer/generalized weakness/ interstitial pneumonitis August 04, 2018-patient seen and examined, very upset that he is still in hospital. Currently on 4 L nasal cannula however patient denies any shortness of breath. Physical Exam Vital signs: Vital Signs 08/03/18 12:00 08/03/18 14:49 08/03/18 16:00 Temperature 97.7 F 98.6 F Pulse Rate 102 H 99 H 102 H Respiratory Rate 20 18 22 Blood Pressure 129/62 145/72 H Pulse Oximetry 98 94 L 96 08/03/18 20:00 08/04/18 00:00 08/04/18 00:18 Temperature 98.1 F 97.5 F L Pulse Rate 100 H 91 H 102 H Respiratory Rate 20 16 Blood Pressure 128/62 146/70 H Pulse Oximetry 98 08/04/18 04:00 08/04/18 07:00 08/04/18 07:58 Temperature 97.4 F L 97.9 F Pulse Rate 87 80 82 Respiratory Rate 18 18 Blood Pressure 162/74 H 138/79 Pulse Oximetry 95 95 08/04/18 08:18 Temperature Pulse Rate Respiratory Rate Blood Pressure Pulse Oximetry 95 Intake & Output 08/03/18 08/04/18 08/04/18 18:59 06:59 18:59 Intake Total 1080 / 1080 Output Total 500 / 500 Balance 580 / 580 Weight 90.1 kg Intake: Oral 1080 / 1080 Output: Urine 500 / 500 Other: Date of Last Bowel Movement 08/03/18 08/03/18 08/03/18 Narrative: GENERAL: Well-developed, well-nourished, no apparent distress. SKIN: Focused skin assessment warm/dry. Diffuse pallor. HEAD: Atraumatic. Normocephalic. EYES: Pupils equal and round. No scleral icterus. No injection or drainage. Conjunctival pallor. ENT: No nasal bleeding or discharge. Mucous membranes pink and moist. NECK: Trachea midline. No JVD. CARDIOVASCULAR: Regular rate and rhythm. RESPIRATORY: No accessory muscle use GASTROINTESTINAL: Abdomen soft, non-tender, nondistended. MUSCULOSKELETAL: No obvious deformities. No clubbing. No cyanosis. TR edema. NEUROLOGICAL: Awake and alert. No obvious cranial nerve deficits. Motor grossly within normal limits. Normal speech. PSYCHIATRIC: Appropriate mood and affect; insight and judgment normal. Results - Labs CBC & Chem 7: 08/04/18 04:20 08/04/18 04:20 Laboratory Results - last 24 hr 08/03/18 08/03/18 08/03/18 11: 16:31 16:52 WBC RBC Hgb Hct MCV MCH MCHC RDW Plt Count MPV Prelim Diff (Auto) Neut % (Auto) Lymph % (Auto) [place] % (Auto) Eos % (Auto) Baso % (Auto) Neut # (Auto) Lymph # (Auto) [place] # (Auto) Eos # (Auto) Baso # (Auto) WBC Differential Seg Neuts % (Manual) Band Neuts % (Manual) Lymphocytes % (Manual) Monocytes % (Manual) Myelocytes % (Man) Abs Neuts (Manual) Nucleated RBCs/100 WBC Differential Comment Platelet Estimate Platelet Morphology Ovalocytes Puncture Site Right radial Patient Temperature 98.6 O2 Saturation 84 L* ABG pH 7.49 H ABG pCO2 28 L ABG pO2 50 L* ABG HCO3 21 L ABG O2 Content 10.1 L ABG Base Excess -1.6 ABG Methemoglobin 1.5 Samuel Test + Hemoglobin 8.5 L Carboxyhemoglobin 1.5 O2 Delivery Device Room air Inspired O2 21 Critical Value Yes Sodium Potassium Chloride Carbon Dioxide Anion Gap BUN Creatinine Estimated GFR POC Glucose 243 H 303 H Random Glucose Calcium Total Bilirubin AST ALT Alkaline Phosphatase Total Protein Albumin 08/03/18 08/04/18 08/04/18 20:49 04:20 04:20 WBC 6.8 RBC 2.57 L Hgb 8.3 L Hct 23.7 L MCV 92.2 MCH 32.3 MCHC 35.0 RDW 17.5 H Plt Count 292 MPV 7.3 Prelim Diff (Auto) Slide review pending Neut % (Auto) 75.4 H Lymph % (Auto) 11.9 [place] % (Auto) 12.6 H Eos % (Auto) 0.0 Baso % (Auto) 0.1 Neut # (Auto) 5.1 Lymph # (Auto) 0.8 L [place] # (Auto) 0.9 Eos # (Auto) 0.0 Baso # (Auto) 0.0 WBC Differential Manual diff final Seg Neuts % (Manual) 76 H Band Neuts % (Manual) 2 Lymphocytes % (Manual) 11 Monocytes % (Manual) 9 H Myelocytes % (Man) 2 H Abs Neuts (Manual) 5.4 Nucleated RBCs/100 WBC 6 H Differential Comment . Platelet Estimate Normal Platelet Morphology Normal Ovalocytes 1+ H Puncture Site Patient Temperature O2 Saturation ABG pH ABG pCO2 ABG pO2 ABG HCO3 ABG O2 Content ABG Base Excess ABG Methemoglobin Samuel Test Hemoglobin Carboxyhemoglobin O2 Delivery Device Inspired O2 Critical Value Sodium 141 Potassium 4.6 Chloride 110 H Carbon Dioxide 26.8 Anion Gap 4 L BUN 27 H Creatinine 1.18 Estimated GFR 60 L POC Glucose 287 H Random Glucose 260 H Calcium 7.9 L Total Bilirubin 0.3 AST 18 ALT 25 Alkaline Phosphatase 56 Total Protein 5.6 L Albumin 2.3 L 08/04/18 08:02 WBC RBC Hgb Hct MCV MCH MCHC RDW Plt Count MPV Prelim Diff (Auto) Neut % (Auto) Lymph % (Auto) [place] % (Auto) Eos % (Auto) Baso % (Auto) Neut # (Auto) Lymph # (Auto) [place] # (Auto) Eos # (Auto) Baso # (Auto) WBC Differential Seg Neuts % (Manual) Band Neuts % (Manual) Lymphocytes % (Manual) Monocytes % (Manual) Myelocytes % (Man) Abs Neuts (Manual) Nucleated RBCs/100 WBC Differential Comment Platelet Estimate Platelet Morphology Ovalocytes Puncture Site Patient Temperature O2 Saturation ABG pH ABG pCO2 ABG pO2 ABG HCO3 ABG O2 Content ABG Base Excess ABG Methemoglobin Samuel Test Hemoglobin Carboxyhemoglobin O2 Delivery Device Inspired O2 Critical Value Sodium Potassium Chloride Carbon Dioxide Anion Gap BUN Creatinine Estimated GFR POC Glucose 185 H Random Glucose Calcium Total Bilirubin AST ALT Alkaline Phosphatase Total Protein Albumin Microbiology 07/30/18 11:25 Blood - Peripheral Aerobic Blood Culture - Final No growth in 5 days 07/30/18 11:25 Blood - Peripheral Anaerobic Blood Culture - Final No growth in 5 days 07/30/18 11:15 Blood - Peripheral Aerobic Blood Culture - Final No growth in 5 days 07/30/18 11:15 Blood - Peripheral Anaerobic Blood Culture - Final No growth in 5 days Assessment and Plan - Assessment (1) Metastatic disease Code(s): C79.9 - Secondary malignant neoplasm of unspecified site Status: Acute - Plan 78-year-old man Generalized weakness/Prostate cancer/Anemia Multifactorial. He has metastatic prostate cancer and was recently started on chemotherapy. -oncology consult appreciated. -PT evaluation. Interstitial pneumonitis? -2/2 response to Taxotere -The pt has been on Levaquin and prednisone for [address] chest showed: No pulmonary emboli; Progression in the patient's emphysematous changes as well as chronic interstitial change when compared to the prior study; New lymph node involving the right cardiophrenic angle without bulky adenopathy elsewhere; Short-term follow-up CT is suggested to document stability of this nodule. -Now on Solu-Medrol 60 mg IV every 12 hours per oncology. Continue ISS for hyperglycemia prophylaxis -Appreciate input from pulmonary medicine -hold off on further antibiotics. -Continue as needed Duonebs. -incentive spirometry. -Maintain oxygen saturation above 92%. Hypokalemia-resolved status post replacement PPx: Lovenox
--- NOTE | 2018-08-04 12:17 | P.PNONC ---
Subjective Interval history: Patient sitting on bedside, about to eat lunch. He expresses frustration that he is still hospitalized. He states he feels great and wants to go home. He asked what we are waiting on. Objective Vital Signs/Intake & Output: Vital Signs 08/03/18 14:49 08/03/18 16:00 08/03/18 20:00 Temperature 98.6 F 98.1 F Pulse Rate 99 H 102 H 100 H Respiratory Rate 18 22 20 Blood Pressure 145/72 H 128/62 Pulse Oximetry 94 L 96 08/04/18 00:00 08/04/18 00:18 08/04/18 04:00 Temperature 97.5 F L 97.4 F L Pulse Rate 91 H 102 H 87 Respiratory Rate 16 18 Blood Pressure 146/70 H 162/74 H Pulse Oximetry 98 95 08/04/18 07:00 08/04/18 07:58 08/04/18 08:18 Temperature 97.9 F Pulse Rate 80 82 Respiratory Rate 18 Blood Pressure 138/79 Pulse Oximetry 95 95 08/04/18 11:00 08/04/18 11:24 Temperature 98.5 F Pulse Rate 78 82 Respiratory Rate 20 Blood Pressure 137/69 Pulse Oximetry 96 Intake & Output 08/03/18 08/04/18 08/04/18 18:59 06:59 18:59 Intake Total 1080 / 1080 Output Total 500 / 500 Balance 580 / 580 Weight 90.1 kg Intake: Oral 1080 / 1080 Output: Urine 500 / 500 Other: Date of Last Bowel Movement 08/03/18 08/03/18 08/03/18 Result Diagrams: 08/04/18 04:20 08/04/18 04:20 Laboratory Results: Laboratory Results - last 24 hr 08/03/18 08/03/18 08/03/18 16:31 16:52 20:49 WBC RBC Hgb Hct MCV MCH MCHC RDW Plt Count MPV Prelim Diff (Auto) Neut % (Auto) Lymph % (Auto) [place] % (Auto) Eos % (Auto) Baso % (Auto) Neut # (Auto) Lymph # (Auto) [place] # (Auto) Eos # (Auto) Baso # (Auto) WBC Differential Seg Neuts % (Manual) Band Neuts % (Manual) Lymphocytes % (Manual) Monocytes % (Manual) Myelocytes % (Man) Abs Neuts (Manual) Nucleated RBCs/100 WBC Differential Comment Platelet Estimate Platelet Morphology Ovalocytes Puncture Site Right radial Patient Temperature 98.6 O2 Saturation 84 L* ABG pH 7.49 H ABG pCO2 28 L ABG pO2 50 L* ABG HCO3 21 L ABG O2 Content 10.1 L ABG Base Excess -1.6 ABG Methemoglobin 1.5 Samuel Test + Hemoglobin 8.5 L Carboxyhemoglobin 1.5 O2 Delivery Device Room air Inspired O2 21 Critical Value Yes Sodium Potassium Chloride Carbon Dioxide Anion Gap BUN Creatinine Estimated GFR POC Glucose 303 H 287 H Random Glucose Calcium Total Bilirubin AST ALT Alkaline Phosphatase Total Protein Albumin 08/04/18 08/04/18 08/04/18 04:20 04:20 08:02 WBC 6.8 RBC 2.57 L Hgb 8.3 L Hct 23.7 L MCV 92.2 MCH 32.3 MCHC 35.0 RDW 17.5 H Plt Count 292 MPV 7.3 Prelim Diff (Auto) Slide review pending Neut % (Auto) 75.4 H Lymph % (Auto) 11.9 [place] % (Auto) 12.6 H Eos % (Auto) 0.0 Baso % (Auto) 0.1 Neut # (Auto) 5.1 Lymph # (Auto) 0.8 L [place] # (Auto) 0.9 Eos # (Auto) 0.0 Baso # (Auto) 0.0 WBC Differential Manual diff final Seg Neuts % (Manual) 76 H Band Neuts % (Manual) 2 Lymphocytes % (Manual) 11 Monocytes % (Manual) 9 H Myelocytes % (Man) 2 H Abs Neuts (Manual) 5.4 Nucleated RBCs/100 WBC 6 H Differential Comment . Platelet Estimate Normal Platelet Morphology Normal Ovalocytes 1+ H Puncture Site Patient Temperature O2 Saturation ABG pH ABG pCO2 ABG pO2 ABG HCO3 ABG O2 Content ABG Base Excess ABG Methemoglobin Samuel Test Hemoglobin Carboxyhemoglobin O2 Delivery Device Inspired O2 Critical Value Sodium 141 Potassium 4.6 Chloride 110 H Carbon Dioxide 26.8 Anion Gap 4 L BUN 27 H Creatinine 1.18 Estimated GFR 60 L POC Glucose 185 H Random Glucose 260 H Calcium 7.9 L Total Bilirubin 0.3 AST 18 ALT 25 Alkaline Phosphatase 56 Total Protein 5.6 L Albumin 2.3 L 08/04/18 11:28 WBC RBC Hgb Hct MCV MCH MCHC RDW Plt Count MPV Prelim Diff (Auto) Neut % (Auto) Lymph % (Auto) [place] % (Auto) Eos % (Auto) Baso % (Auto) Neut # (Auto) Lymph # (Auto) [place] # (Auto) Eos # (Auto) Baso # (Auto) WBC Differential Seg Neuts % (Manual) Band Neuts % (Manual) Lymphocytes % (Manual) Monocytes % (Manual) Myelocytes % (Man) Abs Neuts (Manual) Nucleated RBCs/100 WBC Differential Comment Platelet Estimate Platelet Morphology Ovalocytes Puncture Site Patient Temperature O2 Saturation ABG pH ABG pCO2 ABG pO2 ABG HCO3 ABG O2 Content ABG Base Excess ABG Methemoglobin Samuel Test Hemoglobin Carboxyhemoglobin O2 Delivery Device Inspired O2 Critical Value Sodium Potassium Chloride Carbon Dioxide Anion Gap BUN Creatinine Estimated GFR POC Glucose 182 H Random Glucose Calcium Total Bilirubin AST ALT Alkaline Phosphatase Total Protein Albumin Culture Results: Microbiology 07/30/18 11:25 Aerobic Blood Culture - Final Blood - Peripheral No growth in 5 days Anaerobic Blood Culture - Final No growth in 5 days 07/30/18 11:15 Aerobic Blood Culture - Final Blood - Peripheral No growth in 5 days Anaerobic Blood Culture - Final No growth in 5 days Medications: Active Medications Generic Name Dose Route Start Last Admin Trade Name Freq PRN Reason Stop Dose Admin Aspirin 325 mg 07/31/18 09:00 08/04/18 08:11 Ecotrin PO 325 mg DAILY TATI Administration Atorvastatin Calcium 80 mg 07/31/18 09:00 08/04/18 08:11 Lipitor PO 80 mg DAILY TATI Administration Benzonatate 100 mg 08/01/18 21:29 08/02/18 21:00 Tessalon Perles PO 100 mg Q8H PRN Administration COUGH Enoxaparin Sodium 40 mg 07/30/18 16:00 08/03/18 17:35 Lovenox Inj SQ 40 mg Q24H TATI Administration Insulin Aspart 0 unit 08/02/18 12:00 08/04/18 11:31 Novolog Insulin Correctional Sugar Inj SQ 2 unit ACHS TATI Administration Protocol Lorazepam 1 mg 07/31/18 22:19 08/03/18 21:03 Ativan PO 1 mg Q8H PRN Administration ANXIETY Methylprednisolone Sodium Succinate 60 mg 07/31/18 23:00 08/04/18 08:11 Solumedrol Inj IV.PUSH 60 mg Q12HR TATI Administration Montelukast Sodium 10 mg 07/30/18 18:00 08/03/18 17:35 Singulair PO 10 mg QPM TATI Administration Senna/Docusate Sodium 1 tab 08/01/18 15:39 08/02/18 21:00 Gisell-Colace PO 1 tab BID PRN Administration CONSTIPATION Sodium Chloride 2 ml 07/30/18 21:00 08/04/18 08:12 Ns Flush IV.FLUSH 2 ml BID TATI Administration Objective Remarks: GENERAL: Well-nourished, well-developed elderly male patient, in no acute distress. SKIN: Warm and dry. HEAD: Normocephalic. EYES: No scleral icterus. No injection or drainage. NECK: Supple, trachea midline. CARDIOVASCULAR: Regular rate and rhythm without murmurs. RESPIRATORY: Posterior breath sounds clear, equal bilaterally. Nonlabored at rest. O2 via nasal cannula. GASTROINTESTINAL: Abdomen large, soft, non-tender, nondistended. EXTREMITIES: No cyanosis, or edema. MUSCULOSKELETAL: Adequate muscle tone. NEUROLOGICAL: No obvious focal deficit. Awake, alert, and oriented x3. PSYCHIATRIC: Appropriate mood and affect, anxious; insight and judgment normal. Assessment/Plan - Plan Mr. Condon is a pleasant 78-year-old gentleman with metastatic prostate cancer, admitted to the hospital with shortness of breath, cough and hypoxia. I was not able to find a recent CT scan of the thorax for comparison. I was able to find a CAT scan of the abdomen and pelvis done recently at [facility]. The lung bases appeared clear except for moderate underlying emphysema. I did not see any groundglass infiltrates at the lung bases on the recent CT of the abdomen and pelvis and therefore I am still concerned that we have an allergic pneumonitis and not simply worsening emphysema or a pneumonia. He is not better today, if one uses the O2 sat off oxygen with exertion to gauge his progress Recommendations: 1. Possible pneumonitis, continue IV steroids. 2. Hypoxia with ambulation. [employer] has been consulted, ABG O2 sat 84%, pH 7.49, pCO2 28, pO2 50, HCO3 21. Bedside pulmonary function test is pending. 3. Continue supportive care. - Attending Statement The exam, history, and the medical decision-making described in the above note were completed with the assistance of the mid-level provider. I reviewed and agree with the findings presented. I attest that I had a [id number] encounter with the patient on the same day, and personally performed and documented my assessment and findings in the medical record. The exam is unchanged and he remains hypoxic with activity without oxygen. To date there has been no improvement with the steroids. I spoke with Dr. Zamorano this afternoon. He likewise feels this may be an allergic pneumonitis from medicines either Taxotere or Levaquin. He is hopeful that with a more extended course the pneumonitis will improve. At the present time the plan will be to discharge him tomorrow on prednisone 60 mg a day and follow him as an outpatient. Dr. Zamorano is making arrangements for home oxygen. I discussed this with the patient and his and they are agreeable with staying until tomorrow so we can make arrangements for oxygen at home. He will also undergo pulmonary function testing today.
--- NOTE | 2018-08-04 15:16 | P.PNPL ---
Subjective Interval history: 78 YOWM with metastatic prostate ca, sob, Hypoxia Breathing better Desaturates Anxious to go home Physical Exam Vital signs: Vital Signs 08/03/18 16:00 08/03/18 20:00 08/04/18 00:00 Temperature 98.6 F 98.1 F 97.5 F L Pulse Rate 102 H 100 H 91 H Respiratory Rate 22 20 16 Blood Pressure 145/72 H 128/62 146/70 H Pulse Oximetry 96 98 08/04/18 00:18 08/04/18 04:00 08/04/18 07:00 Temperature 97.4 F L Pulse Rate 102 H 87 80 Respiratory Rate 18 Blood Pressure 162/74 H Pulse Oximetry 95 08/04/18 07:58 08/04/18 08:18 08/04/18 11:00 Temperature 97.9 F Pulse Rate 82 78 Respiratory Rate 18 Blood Pressure 138/79 Pulse Oximetry 95 95 08/04/18 11:24 Temperature 98.5 F Pulse Rate 82 Respiratory Rate 20 Blood Pressure 137/69 Pulse Oximetry 96 Intake & Output 08/03/18 08/04/18 08/04/18 18:59 06:59 18:59 Intake Total 1080 / 1080 Output Total 500 / 500 Balance 580 / 580 Weight 90.1 kg Intake: Oral 1080 / 1080 Output: Urine 500 / 500 Other: Date of Last Bowel Movement 08/03/18 08/03/18 08/03/18 GENERAL: Elderly WM, NAD, weak SKIN: Warm and dry. HEAD: Normocephalic. EYES: No scleral icterus. No injection or drainage. NECK: Supple, trachea midline. No JVD or lymphadenopathy. CARDIOVASCULAR: Regular rate and rhythm without murmurs, gallops, or rubs. RESPIRATORY: Breath sounds equal bilaterally. No accessory muscle use. GASTROINTESTINAL: Abdomen soft, non-tender, nondistended. MUSCULOSKELETAL: No cyanosis, or edema. BACK: Nontender without obvious deformity. No CVA tenderness. Assessment and Plan - Plan IMPRESSION: 1. Worsening of his shortness of breath and hypoxia with ground glass infiltrate, possible inflammatory reaction or hypersensitivity pneumonia. 2. Underlying chronic obstructive pulmonary disease. 3. hypoxia. 4. Metastatic prostate carcinoma. 5. History of carotid endarterectomy. PLAN: IV Solumedrol Aerosol nebs Supplement 02 Check PFT Will need home 02
[2018-08-04] MEDS: Enoxaparin Inj 40 MG/0.4 ML Syringe SQ SCH (15:36)
[2018-08-04] MEDS: Montelukast 10 MG Tablet PO SCH (17:09)
[2018-08-04] MEDS: LORazepam 1 MG Tablet PO PRN (20:59)
[2018-08-05 07:47] VITALS: RESP 18; O2SAT 97
[2018-08-05] MEDS: Insulin NovoLOG Aspart Correctional Sugar Inj SQ SCH ×2 (07:50→12:23)
[2018-08-05] MEDS: Sodium Chloride 0.9% 2 ML Flush BID IV.FLUSH SCH (08:55)
[2018-08-05] MEDS: MethylPREDNISolone Sod Succinate Inj 125 MG/2 ML Vial IV.PUSH SCH (08:55)
--- NOTE | 2018-08-05 10:45 | P.PN ---
Subjective Interval history: Follow-up history of metastases prostate cancer/generalized weakness/ interstitial pneumonitis August 04, 2018-patient seen and examined, very upset that he is still in hospital. Currently on 4 L nasal cannula however patient denies any shortness of breath. August 05, 2018-patient seen and examined, looking for going home today. Denies any shortness of breath. No acute event overnight. Physical Exam Vital signs: Vital Signs 08/04/18 11:00 08/04/18 11:24 08/04/18 15:31 Temperature 98.5 F 97.6 F Pulse Rate 78 82 86 Respiratory Rate 20 18 Blood Pressure 137/69 138/72 Pulse Oximetry 96 96 Pulse Oximetry [Resting on Room Air] Pulse Oximetry [Resting with Oxygen] 08/04/18 16:00 08/04/18 16:12 08/04/18 16:40 Temperature Pulse Rate 92 H 112 H Respiratory Rate 24 Blood Pressure Pulse Oximetry Pulse Oximetry [Resting on Room Air] 86 L Pulse Oximetry [Resting with Oxygen] 96 08/04/18 20:00 08/04/18 23:00 08/04/18 23:45 Temperature 99.2 F 98.2 F Pulse Rate 97 H 92 H 93 H Respiratory Rate 20 18 Blood Pressure 147/69 H 130/65 Pulse Oximetry 97 99 Pulse Oximetry [Resting on Room Air] Pulse Oximetry [Resting with Oxygen] 08/05/18 00:00 08/05/18 03:00 08/05/18 03:52 Temperature Pulse Rate 75 78 Respiratory Rate 16 Blood Pressure 129/76 Pulse Oximetry 96 96 Pulse Oximetry [Resting on Room Air] Pulse Oximetry [Resting with Oxygen] 08/05/18 07:00 08/05/18 07:42 Temperature 98.4 F Pulse Rate 69 74 Respiratory Rate 18 Blood Pressure 146/75 H Pulse Oximetry 97 Pulse Oximetry [Resting on Room Air] Pulse Oximetry [Resting with Oxygen] Intake & Output 08/04/18 08/05/18 08/05/18 18:59 06:59 18:59 Intake Total 960 / 960 480 / 480 Output Total 450 / 450 650 / 650 Balance 510 / 510 -170 / -170 Intake: Oral 960 / 960 480 / 480 Output: Urine 450 / 450 650 / 650 Other: # Voids 6 Date of Last Bowel Movement 08/04/18 08/04/1808/05/18 Narrative: GENERAL: Well-developed, well-nourished, no apparent distress. SKIN: Focused skin assessment warm/dry. Diffuse pallor. HEAD: Atraumatic. Normocephalic. EYES: Pupils equal and round. No scleral icterus. No injection or drainage. Conjunctival pallor. ENT: No nasal bleeding or discharge. Mucous membranes pink and moist. NECK: Trachea midline. No JVD. CARDIOVASCULAR: Regular rate and rhythm. RESPIRATORY: No accessory muscle use GASTROINTESTINAL: Abdomen soft, non-tender, nondistended. MUSCULOSKELETAL: No obvious deformities. No clubbing. No cyanosis. TR edema. NEUROLOGICAL: Awake and alert. No obvious cranial nerve deficits. Motor grossly within normal limits. Normal speech. PSYCHIATRIC: Appropriate mood and affect; insight and judgment normal. Results - Labs CBC & Chem 7: 08/04/18 04:20 08/04/18 04:20 Laboratory Results - last 24 hr 08/04/18 08/04/18 08/04/18 11:28 16:53 20:42 POC Glucose 182 H 355 H 274 H 08/05/18 07:45 POC Glucose 254 H Microbiology 07/30/18 11:25 Blood - Peripheral Aerobic Blood Culture - Final No growth in 5 days 07/30/18 11:25 Blood - Peripheral Anaerobic Blood Culture - Final No growth in 5 days 07/30/18 11:15 Blood - Peripheral Aerobic Blood Culture - Final No growth in 5 days 07/30/18 11:15 Blood - Peripheral Anaerobic Blood Culture - Final No growth in 5 days - Procedures none Assessment and Plan - Assessment (1) Metastatic disease Code(s): C79.9 - Secondary malignant neoplasm of unspecified site Status: Acute - Plan 78-year-old man Generalized weakness/Prostate cancer/Anemia Multifactorial. He has metastatic prostate cancer and was recently started on chemotherapy. -oncology consult appreciated. -PT evaluation. Interstitial pneumonitis -2/2 response to Taxotere -The pt has been on Levaquin and prednisone for [address] chest showed: No pulmonary emboli; Progression in the patient's emphysematous changes as well as chronic interstitial change when compared to the prior study; New lymph node involving the right cardiophrenic angle without bulky adenopathy elsewhere; Short-term follow-up CT is suggested to document stability of this nodule. -Now on Solu-Medrol 60 mg IV every 12 hours per oncology. Will discharge home on 60 mg p.o. prednisone daily. Continue ISS for hyperglycemia prophylaxis -Appreciate input from pulmonary medicine -hold off on further antibiotics. -Continue as needed Duonebs. -incentive spirometry. -Maintain oxygen saturation above 92%. -Patient will require home oxygen, after failing respiratory walk test Hypokalemia-resolved status post replacement PPx: Lovenox
--- NOTE | 2018-08-05 10:52 | P.DS ---
Date of admission: 07/30/18 15:03 Primary care physician: Omari Tuttle DO Brief History from admission: The patient is a 78-year-old male with a past medical history of metastatic prostate cancer who is presenting to the hospital with worsening weakness and shortness of breath. The patient says that about 4 months ago he went to an outside hospital where he was worked up for weakness. He said he had all kinds of tests and imaging done and no reason for his weakness was found. He says that about 1 month ago he developed increasing shortness of breath. He waited for it to get better but about 11 days ago he went to his primary care doctor who ordered a chest x-ray and stated that the patient had bronchitis. He was started on Levaquin and prednisone which he continues at this time. He feels like the medications have helped a little bit. He states that he is still very weak and does not feel 100%. He says that he could barely walk. He feels tired all the time. He says sometimes he sleeps at 4 PM and wakes up at 8 AM the next day. He says he was recently started on chemotherapy a week from Monday. He says he gets chemotherapy 1 day a month for 6 months. He denies any fevers. He does endorse nasal congestion. He has been having a lot of mouth breathing. He says that he has had a bad taste in his mouth. He has not been eating that much. He says that he is scheduled to go on a cruise in the beginning of August. DS: Diagnosis - Discharge Diagnosis (1) Metastatic disease Status: Acute DS: Summary Hospital Course: While in hospital, patient was treated for: Generalized weakness/Prostate cancer/Anemia Multifactorial. He has metastatic prostate cancer and was recently started on chemotherapy. -oncology consult appreciated. -PT was consulted Interstitial pneumonitis? -2/2 response to Taxotere -The pt has been on Levaquin and prednisone for [address] chest showed: No pulmonary emboli; Progression in the patient's emphysematous changes as well as chronic interstitial change when compared to the prior study; New lymph node involving the right cardiophrenic angle without bulky adenopathy elsewhere; Short-term follow-up CT is suggested to document stability of this nodule. -He was started on Solu-Medrol 60 mg IV every 12 hours per oncology and placed on insulin sliding scale for hyperglycemia prophylaxis. Will discharge home on 60 mg p.o. prednisone daily. -Pulmonary medicine was consulted -DuoNeb was provided and a walk test was ordered prior to discharge. However patient will require home oxygen on discharge Hypokalemia-resolved status post replacement PPx: Lovenox - Time Spent with Patient Total time spent providing and/or coordinating discharge services: Greater than 30 minutes - Quality: VTE Deep Vein Thrombosis/Pulmonary Embolism Present on Admission: No Exam Vital signs: Vital Signs 08/04/18 11:00 08/04/18 11:24 08/04/18 15:31 Temperature 98.5 F 97.6 F Pulse Rate 78 82 86 Respiratory Rate 20 18 Blood Pressure 137/69 138/72 Pulse Oximetry 96 96 Pulse Oximetry [Resting on Room Air] Pulse Oximetry [Resting with Oxygen] 08/04/18 16:00 08/04/18 16:12 08/04/18 16:40 Temperature Pulse Rate 92 H 112 H Respiratory Rate 24 Blood Pressure Pulse Oximetry Pulse Oximetry [Resting on Room Air] 86 L Pulse Oximetry [Resting with Oxygen] 96 08/04/18 20:00 08/04/18 23:00 08/04/18 23:45 Temperature 99.2 F 98.2 F Pulse Rate 97 H 92 H 93 H Respiratory Rate 20 18 Blood Pressure 147/69 H 130/65 Pulse Oximetry 97 99 Pulse Oximetry [Resting on Room Air] Pulse Oximetry [Resting with Oxygen] 08/05/18 00:00 08/05/18 03:00 08/05/18 03:52 Temperature Pulse Rate 75 78 Respiratory Rate 16 Blood Pressure 129/76 Pulse Oximetry 96 96 Pulse Oximetry [Resting on Room Air] Pulse Oximetry [Resting with Oxygen] 08/05/18 07:00 08/05/18 07:42 Temperature 98.4 F Pulse Rate 69 74 Respiratory Rate 18 Blood Pressure 146/75 H Pulse Oximetry 97 Pulse Oximetry [Resting on Room Air] Pulse Oximetry [Resting with Oxygen] Intake & Output 08/04/18 08/05/18 08/05/18 18:59 06:59 18:59 Intake Total 960 / 960 480 / 480 Output Total 450 / 450 650 / 650 Balance 510 / 510 -170 / -170 Intake: Oral 960 / 960 480 / 480 Output: Urine 450 / 450 650 / 650 Other: # Voids 6 Date of Last Bowel Movement 08/04/18 08/04/18 08/05/18 Narrative: GENERAL: Well-developed, well-nourished, no apparent distress. SKIN: Focused skin assessment warm/dry. Diffuse pallor. HEAD: Atraumatic. Normocephalic. EYES: Pupils equal and round. No scleral icterus. No injection or drainage. Conjunctival pallor. ENT: No nasal bleeding or discharge. Mucous membranes pink and moist. NECK: Trachea midline. No JVD. CARDIOVASCULAR: Regular rate and rhythm. RESPIRATORY: No accessory muscle use GASTROINTESTINAL: Abdomen soft, non-tender, nondistended. MUSCULOSKELETAL: No obvious deformities. No clubbing. No cyanosis. TR edema. NEUROLOGICAL: Awake and alert. No obvious cranial nerve deficits. Motor grossly within normal limits. Normal speech. PSYCHIATRIC: Appropriate mood and affect; insight and judgment normal. Results Procedures completed during hospitalization: none Labs on day of discharge: Labs from last 24 hours 08/05/18 08/04/18 08/04/18 07:45 20:42 16:53 POC Glucose 254 H 274 H 355 H 08/04/18 11:28 POC Glucose 182 H - Impressions ITS Impressions Chest X-Ray 07/30/18 11:00 CONCLUSION: Interstitial vascular prominence with moderate cardiomegaly. Early congestion suspected. Chest CTA 07/30/18 12:48 CONCLUSION: 1. No pulmonary emboli. 2. Progression in the patient's emphysematous changes as well as chronic interstitial change when compared to the prior study. 3. Pronounced coronary artery atherosclerotic calcifications. 4. New lymph node involving the right cardiophrenic angle without bulky adenopathy elsewhere. Short-term follow-up CT is suggested to document stability of this nodule. This can be performed without IV contrast. 5. Cholelithiasis. 6. Sclerotic metastases presumably relating to a prostate primary. There is a pathologic fracture involving the right eighth rib. Soft Tissue Neck CT 07/30/18 12:54 CONCLUSION: 1. Sclerotic lesion involving the left first rib. Please see the CTA of the chest reported separately. 2. No mass or adenopathy involving the neck. 3. Carotid artery atherosclerotic calcifications. Discharge Plan - Discharge Disposition Patient Disposition: /Home Health Service - Discharge Condition Condition: Stable - Discharge Order Discharge Orders: Discharge Order (Routine); Ordered 08/05/18 Ordered By: Jerrod Sidhu - Physicians Team Primary Care Provider: Omari Tuttle Attending Provider: Jerrod Sidhu Other Providers: Chris Enciso MD ; Ernesto Zamorano MD
--- NOTE | 2018-08-05 12:19 | P.PNONC ---
Subjective Interval history: Patient awake and alert, states he is confused about what is going on. He is awaiting discharge today once O2 is delivered. Per attending discharge note the patient will be continued on sliding scale insulin for increased blood sugar while on steroids. Discussed with the patient and he and his will need to be educated on this prior to discharge. Discussed with RN. Will further discuss with Dr. Enciso to see if there is an alternative. Objective Vital Signs/Intake & Output: Vital Signs 08/04/18 15:31 08/04/18 16:00 08/04/18 16:12 Temperature 97.6 F Pulse Rate 86 92 H 112 H Respiratory Rate 18 24 Blood Pressure 138/72 Pulse Oximetry 96 Pulse Oximetry [Resting on Room Air] Pulse Oximetry [Resting with Oxygen] 08/04/18 16:40 08/04/18 20:00 08/04/18 23:00 Temperature 99.2 F Pulse Rate 97 H 92 H Respiratory Rate 20 Blood Pressure 147/69 H Pulse Oximetry 97 Pulse Oximetry [Resting on Room Air] 86 L Pulse Oximetry [Resting with Oxygen] 96 08/04/18 23:45 08/05/18 00:00 08/05/18 03:00 Temperature 98.2 F Pulse Rate 93 H 75 Respiratory Rate 18 Blood Pressure 130/65 Pulse Oximetry 99 96 Pulse Oximetry [Resting on Room Air] Pulse Oximetry [Resting with Oxygen] 08/05/18 03:52 08/05/18 07:00 08/05/18 07:42 Temperature 98.4 F Pulse Rate 78 69 74 Respiratory Rate 16 18 Blood Pressure 129/76 146/75 H Pulse Oximetry 96 97 Pulse Oximetry [Resting on Room Air] Pulse Oximetry [Resting with Oxygen] 08/05/18 11:00 Temperature Pulse Rate 68 Respiratory Rate Blood Pressure Pulse Oximetry Pulse Oximetry [Resting on Room Air] Pulse Oximetry [Resting with Oxygen] Intake & Output 08/04/18 08/05/18 08/05/18 18:59 06:59 18:59 Intake Total 960 / 960 480 / 480 Output Total 450 / 450 650 / 650 Balance 510 / 510 -170 / -170 Intake: Oral 960 / 960 480 / 480 Output: Urine 450 / 450 650 / 650 Other: # Voids 6 Date of Last Bowel Movement 08/04/18 08/04/18 08/05/18 Result Diagrams: 08/04/18 04:20 08/04/18 04:20 Laboratory Results: Laboratory Results - last 24 hr 08/04/18 08/04/18 08/05/18 16:53 20:42 07:45 POC Glucose 355 H 274 H 254 H Culture Results: Microbiology 07/30/18 11:25 Aerobic Blood Culture - Final Blood - Peripheral No growth in 5 days Anaerobic Blood Culture - Final No growth in 5 days 07/30/18 11:15 Aerobic Blood Culture - Final Blood - Peripheral No growth in 5 days Anaerobic Blood Culture - Final No growth in 5 days Medications: Active Medications Generic Name Dose Route Start Last Admin Trade Name Freq PRN Reason Stop Dose Admin Albuterol 1 ampul 07/30/18 15:01 08/04/18 16:12 Duoneb Neb (Prn) NEB 1 ampul Q2HR NEB PRN Administration DYSPNEA Aspirin 325 mg 07/31/18 09:00 08/05/18 08:55 Ecotrin PO 325 mg DAILY TATI Administration Atorvastatin Calcium 80 mg 07/31/18 09:00 08/05/18 08:55 Lipitor PO 80 mg DAILY TATI Administration Benzonatate 100 mg 08/01/18 21:29 08/02/18 21:00 Tessalon Perles PO 100 mg Q8H PRN Administration COUGH Enoxaparin Sodium 40 mg 07/30/18 16:00 08/04/18 15:36 Lovenox Inj SQ 40 mg Q24H TATI Administration Insulin Aspart 0 unit 08/02/18 12:00 08/05/18 07:50 Novolog Insulin Correctional Sugar Inj SQ 7 unit ACHS TATI Administration Protocol Lorazepam 1 mg 07/31/18 22:19 08/04/18 20:59 Ativan PO 1 mg Q8H PRN Administration ANXIETY Methylprednisolone Sodium Succinate 60 mg 07/31/18 23:00 08/05/18 08:55 Solumedrol Inj IV.PUSH 60 mg Q12HR TATI Administration Montelukast Sodium 10 mg 07/30/18 18:00 08/04/18 17:09 Singulair PO 10 mg QPM TATI Administration Senna/Docusate Sodium 1 tab 08/01/18 15:39 08/02/18 21:00 Gisell-Colace PO 1 tab BID PRN Administration CONSTIPATION Sodium Chloride 2 ml 07/30/18 21:00 08/05/18 08:55 Ns Flush IV.FLUSH 2 ml BID TATI Administration Objective Remarks: GENERAL: Well-nourished, well-developed elderly male patient, in no acute distress. SKIN: Warm and dry. HEAD: Normocephalic. EYES: No scleral icterus. No injection or drainage. NECK: Supple, trachea midline. CARDIOVASCULAR: Regular rate and rhythm without murmurs. RESPIRATORY: Posterior breath sounds clear, equal bilaterally. Nonlabored at rest. O2 via nasal cannula. GASTROINTESTINAL: Abdomen large, soft, non-tender, nondistended. EXTREMITIES: No cyanosis, or edema. MUSCULOSKELETAL: Adequate muscle tone. NEUROLOGICAL: No obvious focal deficit. Awake, alert, and oriented x3. PSYCHIATRIC: Appropriate mood and affect, anxious. Assessment/Plan - Plan Mr. Condon is a pleasant 78-year-old gentleman with metastatic prostate cancer, admitted to the hospital with shortness of breath, cough and hypoxia. I was not able to find a recent CT scan of the thorax for comparison. I was able to find a CAT scan of the abdomen and pelvis done recently at [facility]. The lung bases appeared clear except for moderate underlying emphysema. I did not see any groundglass infiltrates at the lung bases on the recent CT of the abdomen and pelvis and therefore I am still concerned that we have an allergic pneumonitis and not simply worsening emphysema or a pneumonia. He is not better today, if one uses the O2 sat off oxygen with exertion to gauge his progress Recommendations: 1. Possible pneumonitis, currently on IV steroids. Will be discharged home on oral steroids. 2. Hypoxia with ambulation. Patient felt O2 walk test. Will be discharged home on oxygen. Attending has arranged. 3. If discharged home on sliding scale insulin, patient and will need education in regards to this. Discussed with RN. - Attending Statement The exam, history, and the medical decision-making described in the above note were completed with the assistance of the mid-level provider. I reviewed and agree with the findings presented. I attest that I had a [id number] encounter with the patient on the same day, and personally performed and documented my assessment and findings in the medical record. Overall there is been no improvement. Glucoses remains elevated. He is overwhelmed with the situation and sending him home with insulin coverage would not work without teaching and greater support. He will be discharged today. He will have a portable concentrator which delivers up to 5 L of continuous oxygen. He will take prednisone 60 mg a day. He will take Prilosec 20 mg a day to protect his stomach. He will take Glucophage 850 mg p.o. twice daily to control blood sugars. He has a follow-up appointment with me later this week. The situation is disturbing and I do not feel comfortable giving him chemotherapy until he is significantly better. He has progressive prostate cancer and now has a significant degree of hypoxemia requiring oxygen.
[2018-08-05 12:20] VITALS: BP 153/90; PULSE 83; TEMP 97.9
[2018-08-05] MEDS ORDERED: Heparin Central Flush 100 UNIT/ML 5 ML Vial IV.FLUSH ONE (14:15)
== END 2018-08-05 15:04 | disposition home health service (06) ==
LOC: NEPE 09:56 → NEDA 09:56 → HCIS 17:50
PROVIDERS: ADMIT Hospitalist; ATTEND Hospitalist